=== PATIENT | female | born 1935 | race Caucasian/White ===

== ENCOUNTER 2017-04-17 11:35 | Inpatient (IN) | payer OTHER, MEDICARE ==
[2017-03-12 11:29] VITALS: BMI 28.0
--- NOTE | 2017-03-12 12:00 | PAT Medication Instructions ---
Service Date Mar 12, 2017. Current Home Medication List Amlodipine (Norvasc), 10 MG PO QPM Aspirin (Aspirin Ec), 81 MG PO QPM Atorvastatin (Lipitor), 20 MG PO QPM Calcium/Vitamin D (Os-Bandar 500 Plus D), 1 TAB PO NOON Cholecalciferol (Vitamin D3), 1 TAB PO QPM Fish Oil (White Salmon-3), 1 CAP PO BID Levothyroxine Sodium (Synthroid), 125 MCG PO QAM Metformin Hcl (Glucophage Er), 750 MG PO BID Multivitamins/Minerals (Mvi With Minerals), 1 TAB PO QPM Telmisartan (Micardis), 80 MG PO QAM Terazosin (Hytrin), 5 MG PO QPM [Metoprolol Succ], 125 MG PO QAM Medication Instructions For Your Scheduled Surgery - Hold the following medications 2 weeks prior to surgery: Fish Oil (White Salmon-3), 1 CAP PO BID - Hold the following medications 48 hours prior to surgery: Metformin Hcl (Glucophage Er), 750 MG PO BID - Hold the following medications the morning of surgery: Telmisartan (Micardis), 80 MG PO QAM Calcium/Vitamin D (Os-Bandar 500 Plus D), 1 TAB PO NOON - Take the following medications the morning of surgery with a sip of water OTHERWISE NOTHING TO EAT OR DRINK AFTER MIDNIGHT: [Metoprolol Succ], 125 MG PO QAM Levothyroxine Sodium (Synthroid), 125 MCG PO QAM - Take the following medications as scheduled the night before surgery: Multivitamins/Minerals (Mvi With Minerals), 1 TAB PO QPM Cholecalciferol (Vitamin D3), 1 TAB PO QPM Amlodipine (Norvasc), 10 MG PO QPM Aspirin (Aspirin Ec), 81 MG PO QPM Atorvastatin (Lipitor), 20 MG PO QPM Terazosin (Hytrin), 5 MG PO QPM If you have any questions please call us at [phone] or [phone] or [phone]
[2017-03-12 12:39] LABS: BASO % 0.9 %; BASO ABS # 0.09 K/uL (0-0.2); EOS % 4.4 %; EOS ABS # 0.42 K/uL (0-0.5); HEMATOCRIT 32.9 % (37-47); HEMOGLOBIN 10.4 g/dL (12.0-16.0); IG# 0.07 K/uL (0.00-0.02); LYMPH % 23.9 %; MEAN CELL VOLUME 84.1 fL (80-100); MEAN CORPUSCULAR HEMOGLOBIN 26.6 pg (25-34); MEAN CORPUSCULAR HGB CONC 31.6 g/dl (32-36); MEAN PLATELET VOLUME 9.3 fL (7.4-10.4); MONO % 9.6 %; MONO ABS # 0.93 K/uL (0.11-0.59); NEUT % 60.5 %; NEUT ABS # 5.83 K/uL (1.4-6.5); PLATELET COUNT 275 K/uL (130-400); RED CELL DISTRIBUTION WIDTH CV 15.8 % (11.5-14.5); RED CELL DISTRIBUTION WIDTH SD 48.3 fL (36.4-46.3); WHITE BLOOD COUNT 9.64 K/uL (4.8-10.8)
--- NOTE | 2017-03-12 12:45 | DIAGNOSTIC IMAGING REPORT ---
TWO VIEW CHEST CLINICAL HISTORY: Preoperative examination. FINDINGS: PA and lateral chest radiographs are obtained. No prior studies are available for comparison at the time of dictation. The heart is enlarged and there is atherosclerotic calcification of the thoracic aorta. The pulmonary vasculature is noncongested. The lungs and pleural spaces are clear. There is no pneumothorax. The skeletal structures are osteopenic. Degenerative change and mild hyperkyphosis are noted in the thoracic spine. IMPRESSION: Mild cardiac enlargement with no active disease in the chest. Electronically signed by: Carlitos Hurtado M.D. 03/12/2017 12:44 PM Dictated Date/Time: 03/12/2017 12:43 PM
[2017-03-12 12:53] LABS: INR 1.1 (0.9-1.1); PTT PATIENT 27.3 SECONDS (21.0-31.0)
[2017-03-12 14:00] LABS: CALCIUM 9.7 mg/dl (8.5-10.1); CREATININE 0.97 mg/dl (0.60-1.20); POTASSIUM 4.3 mmol/L (3.5-5.1)
--- NOTE | 2017-04-12 08:56 | HISTORY & PHYSICAL EXAMINATION ---
DATE OF ADMISSION: 04/17/2017 CHIEF COMPLAINT: Primary osteoarthritis of the right knee. HISTORY OF PRESENT ILLNESS: Brandee is a pleasant 81-year-old female who has been dealing with chronic right knee pain for several years. X-rays and clinical examination were diagnostic for primary osteoarthritis of the right knee. After failing extensive conservative treatment including multiple injections, she elected to proceed with a right total knee arthroplasty. PAST MEDICAL HISTORY: Significant for heart disease, non-insulin dependent diabetes, hypothyroidism, hyperlipidemia, hypertension. PAST SURGICAL HISTORY: Significant for left total knee arthroplasty done in 2009 in [facility] [place]. ALLERGIES: None. MEDICATIONS: Include metformin 750 mg daily, Synthroid 125 mcg daily, metoprolol 75 mg 1-1/2 tabs daily, Micardis 80 mg daily, amlodipine 10 mg daily, terazosin 5 mg daily, metformin 750 mg at night, atorvastatin 20 mg daily, and aspirin 81 mg daily. FAMILY HISTORY: Significant for heart disease. SOCIAL HISTORY: She is , has 4 children. She rarely drinks. She does little activity. REVIEW OF SYSTEMS: She complains of right knee pain. All other pertinent review of systems are negative. PHYSICAL EXAMINATION: GENERAL: She is awake, alert and orient x3. She is in no acute distress. She is very pleasant. HEAD, EYES, EARS, NOSE, AND THROAT: Pupils are equal, round and reactive to light. Extraocular motion intact. Oral mucosa is pink and moist. HEART: Regular rate per radial pulse. LUNGS: Ning symmetrically bilaterally with no audible breath sounds. ABDOMEN: Soft, nontender, nondistended. MUSCULOSKELETAL: On physical examination of the right knee, she has good range of motion from 5-110 degrees. She is unable to get out to full extension. She has no cruciate or collateral ligament instability. She has a very mild effusion on exam today. She has tenderness to palpation over the distal medial femoral condyle and over the medial joint line. X-rays of the right knee do show advanced osteoarthritis mostly involving the medial and patellofemoral compartments. There is joint space narrowing and osteophyte formation. There is a well placed Vanguard total knee arthroplasty on the left. IMPRESSION: Primary osteoarthritis of the right knee. PLAN: We will proceed with a Biomet Vanguard right total knee arthroplasty. Postoperatively, she will be started on aspirin for DVT prophylaxis and kept in the hospital for 2 midnights for postop medical management. Will likely discharge her to [facility] after her hospital stay.
[2017-04-17] VITALS (9 sets, daily range): BP systolic 98–135; BP diastolic 55–70; PULSE 61–83; TEMP 36.4–37.3; O2SAT 90–98; Ht 167.6 cm; Wt 80.6 kg
[~2017-04-17] VITALS: Ht 167.6 cm; Wt 80.6 kg
[~2017-04-17 11:35] MED LIST: ACETAMINOPHEN 500 MG TAB PO SCH; AMLO-114 PO; ASPI81TA28 PO; ATOR-22 PO; BUPIVACAINE 0.5 % 5 MG/1 ML PF 10ML VIAL ONE; CALC500C70 PO; CEFAZOLIN 2000MG IV PUSH 10 ML IV SCH; FAMOTIDINE 20 MG TAB PO SCH; GABAPENTIN 300 MG CAP PO SCH; LACTATED RINGER'S 1000ML 1,000 ML IV SCH; LACTATED RINGER'S 1000ML 500 ML IV SCH; LACTATED RINGER'S 1000ML IV SCH; LEVO125T72 PO; METF750T PO; METOPROLOL SUCC PO; MULT-513 PO; OMEG10007 PO; ROPIVACAINE 5MG/ML 30 ML 150 MG, BUPIVACAINE 0.5% MPF INJ 30 ML, EpINEphrine HCL INJ 0.... INFIL SCH; TELM80TA PO; TERA5CAP PO; VTMD1000 PO
--- NOTE | 2017-04-17 12:24 | History & Physical Bridge Note ---
H&P Re-Evaluation Bridge Note: I have examined the patient, reviewed the History & Physical and in the interval since the performance of the History & Physical I have noted the following changes of clinical significance: No changes noted
[2017-04-17] MEDS ORDERED: BUPIVACAINE 0.25% 30 ML VIAL ONE (12:32)
[2017-04-17] MEDS ORDERED: BACITRACIN 50000 UNIT VIAL ONE (12:42)
[2017-04-17] MEDS ORDERED: ORTHO JOINT ANESTHETIC ONE (12:42)
[2017-04-17] MEDS: TRANEXAMIC ACID INJ 1,000 MG in SYRINGE 0 ML IV SCH ×2 (13:15→17:06)
[2017-04-17] MEDS ORDERED: MIDAZOLAM HCL 1 MG/ML 2ML VIAL ONE (13:20)
[2017-04-17] MEDS ORDERED: FENTANYL CITRATE INJ 50 MCG/1 ML 2 ML VIAL ONE (13:20)
[2017-04-17] MEDS ORDERED: PROPOFOL IV EMULSION 10 MG/ML 20 ML VIAL IV ONE ×3 (14:04→15:14)
[2017-04-17] MEDS ORDERED: ONDANSETRON INJ 2 MG/ML 2 ML VIAL ONE (14:05)
--- NOTE | 2017-04-17 15:28 | [facility] Post Operative Brief Note ---
Immediate Operative Summary Operative Date Apr 17, 2017. Pre-Operative Diagnosis Right Knee Degenerative Joint Disease Post-Operative Diagnosis Same as preop Procedure(s) Performed Right Total Knee Arthroplasty Surgeon Dr. Cross Ge[employer] Plant Manager Surgeon(s) Alec Camarena PA-C Estimated Blood Loss 5ML Findings as above Specimens A. Right Knee Bone and Tissue Complication(s) None Disposition Recovery Room / PACU
[2017-04-17] MEDS ORDERED: DEXTROSE 50% 50 ML SYR IV PRN (15:30)
[2017-04-17] MEDS ORDERED: BISACODYL 10 MG SUPP PR PRN (15:30)
[2017-04-17] MEDS ORDERED: GLUCOSE 10 TABS/TUBE PO PRN (15:30)
[2017-04-17] MEDS ORDERED: SOD PHOSPHATE/SOD BIPHOSPHATE ENEMA 132 ML BTL PR PRN (15:30)
[2017-04-17] MEDS ORDERED: GLUCAGON FOR INJ 1 MG VIAL SQ PRN (15:30)
[2017-04-17] MEDS ORDERED: METOCLOPRAMIDE HCL INJ 5 MG/ML 2 ML VIAL IV PRN (15:30)
[2017-04-17] MEDS ORDERED: MAGNESIUM HYDROXIDE SUSP 30 ML UDC PO PRN (15:30)
[2017-04-17] MEDS ORDERED: GLUCOSE 40% GEL 15 GM TUBE PO PRN (15:30)
[2017-04-17] MEDS ORDERED: MoRPHine SULFATE 2 MG/ML CARP IV PRN (15:30)
[2017-04-17] MEDS ORDERED: ONDANSETRON INJ 2 MG/ML 2 ML VIAL IV PRN (15:30)
[2017-04-17] MEDS ORDERED: PHARMACY GLYCEMIC MGMT CONSULT PRN (15:57)
--- NOTE | 2017-04-17 16:09 | DIAGNOSTIC IMAGING REPORT ---
R KNEE 1 OR 2 VIEWS ROUTINE HISTORY: 81 years-old Female AP/LATERAL IN PACU RIGHT KNEE status post right knee arthroplasty. Degenerative joint disease. COMPARISON: Right knee radiographs 12/26/2016 TECHNIQUE: AP and lateral views of the right knee FINDINGS: Postoperative findings compatible with recent total knee joint arthroplasty and patella resurfacing. No evidence of periprosthetic fracture or malalignment. Surgical drain is in place along with anterior skin lencho. Expected postsurgical soft tissue swelling and deep tissue air without retained foreign body. Focal area of nonspecific increased sclerosis measuring up to 2.3 cm in length involves the proximal diaphyseal tibia. IMPRESSION: Status post right knee total joint arthroplasty and patellar resurfacing without complication identified. The above report was generated using voice recognition software. It may contain grammatical, syntax or spelling errors. Electronically signed by: Anthony Robles M.D. 04/17/2017 4:08 PM Dictated Date/Time: 04/17/2017 4:06 PM
--- NOTE | 2017-04-17 16:44 | Anesthesiology Progress Note ---
Anesthesia Post Op Note Date & Time Apr 17, 2017 at 16:44 Vital Signs Pain Intensity: 0 Vital Signs Past 12 Hours Date Time Temp Pulse Resp B/P (MAP) Pulse Ox O2 Delivery O2 Flow Rate FiO2 04/17/17 16:15 36.6 63 15 113/51 98 Nasal Cannula 2 04/17/17 16:05 65 22 112/46 97 Nasal Cannula 2 04/17/17 15:55 69 20 109/45 96 Nasal Cannula 2 04/17/17 15:49 36.2 76 16 97/43 95 Nasal Cannula 2 04/17/17 12:10 37.3 83 18 135/64 93 Room Air Notes Mental Status: alert / awake / arousable, participated in evaluation Pt Amnestic to Procedure: Yes Nausea / Vomiting: adequately controlled Pain: adequately controlled Airway Patency, RR, SpO2: stable & adequate BP & HR: stable & adequate Hydration State: stable & adequate Neuraxial Anesthesia: was administered, sensory block is resolving Anesthetic Complications: no major complications apparent
[2017-04-17] MEDS ORDERED: NURSING VERBAL MED ORDER ONE (17:15)
[2017-04-17] MEDS: INSULIN ASPART 100 UNITS/ML 3 ML PEN SC SCH ×3 (18:18→21:28)
[2017-04-17] MEDS: KETOROLAC TROMETHAMINE 15 MG/ML VIAL IV. SCH (18:19)
[2017-04-17] MEDS: ATORVASTATIN 20 MG TAB PO SCH (21:24)
[2017-04-17] MEDS: CHOLECALCIFEROL 1000 INTER.UNIT TAB PO SCH (21:24)
[2017-04-17] MEDS: AMLODIPINE BESYLATE 5 MG TAB PO SCH (21:24)
[2017-04-17] MEDS: SENNA 8.6 MG TAB PO SCH (21:25)
[2017-04-17] MEDS: ASPIRIN 325 MG ECTAB PO SCH (21:25)
[2017-04-17] MEDS: DOCUSATE SODIUM 100 MG CAP PO SCH (21:25)
[2017-04-17] MEDS: ACETAMINOPHEN IV 1,000 MG in EMPTY BAG 0 ML IV SCH (21:26)
[2017-04-17] MEDS: CEFAZOLIN IV 2,000 MG in SYRINGE 0 ML IV SCH (21:29)
[2017-04-18] VITALS (11 sets, daily range): BP systolic 85–127; BP diastolic 44–74; PULSE 55–65; TEMP 36.3–36.7; O2SAT 93–97
[2017-04-18] MEDS: KETOROLAC TROMETHAMINE 15 MG/ML VIAL IV. SCH ×5 (01:02→23:20)
[2017-04-18] MEDS: SODIUM CHLORIDE 0.9% 1000ML 1,000 ML IV SCH ×2 (01:02→10:31)
[2017-04-18] MEDS ORDERED: INSULIN ASPART 100 UNITS/ML 3 ML PEN SC SCH (02:00)
[2017-04-18] MEDS: OXYCODONE HCL IR 5 MG TAB (IMMEDIATE RELEASE) PO PRN ×3 (03:37→16:10)
[2017-04-18] MEDS: CEFAZOLIN IV 2,000 MG in SYRINGE 0 ML IV SCH (05:56)
[2017-04-18] MEDS: ACETAMINOPHEN IV 1,000 MG in EMPTY BAG 0 ML IV SCH ×3 (05:57→22:21)
[2017-04-18] MEDS: LEVOTHYROXINE 125 MCG TAB PO SCH (05:58)
[2017-04-18 06:31] LABS: HEMATOCRIT 30.3 % (37-47); HEMOGLOBIN 9.7 g/dL (12.0-16.0); MEAN CELL VOLUME 83.9 fL (80-100); MEAN CORPUSCULAR HEMOGLOBIN 26.9 pg (25-34); MEAN PLATELET VOLUME 9.2 fL (7.4-10.4); PLATELET COUNT 211 K/uL (130-400); RED CELL DISTRIBUTION WIDTH CV 15.5 % (11.5-14.5); RED CELL DISTRIBUTION WIDTH SD 48.2 fL (36.4-46.3); WHITE BLOOD COUNT 11.75 K/uL (4.8-10.8)
[2017-04-18 07:03] LABS: CALCIUM 8.6 mg/dl (8.5-10.1); CREATININE 0.83 mg/dl (0.60-1.20); POTASSIUM 3.9 mmol/L (3.5-5.1)
--- NOTE | 2017-04-18 07:16 | PROGRESS NOTE ---
DATE: 04/18/2017 CHIEF COMPLAINT: Status post right total knee arthroplasty postop day #1. PROGRESS: Brandee was seen and examined at bedside today. She said she really has no pain in the right knee. She has been up and using the bathroom. She had no acute events overnight and has no complaints. PHYSICAL EXAMINATION: RIGHT KNEE: The dressing is clean and dry and the drain is to suction. Her leg is out in full extension. She has active dorsiflexion and plantarflexion of her right ankle and sensation is intact. LABORATORY DATA: She has an H&H today of 9.7 and 30.3. Her PRP is still pending. Her vital signs are all stable on room air and she is voiding on her own. X-rays postoperatively of the right knee showed the prosthesis to be in anatomic alignment without any evidence of fracture, dislocation or loosening. IMPRESSION: Status post right total knee arthroplasty postop day #1. PLAN: We will continue aspirin for DVT prophylaxis. She can be up and ambulating today with physical therapy. Tomorrow morning, the nursing staff can change the dressing, pull the drain and if she is doing well, we will look for discharge to [facility] tomorrow.
--- NOTE | 2017-04-18 08:14 | Anesthesiology Progress Note ---
Anesthesia Post Op Note Date & Time Apr 18, 2017 at 08:14 Vital Signs Vital Signs Past 12 Hours Date Time Temp Pulse Resp B/P (MAP) Pulse Ox O2 Delivery O2 Flow Rate FiO2 04/18/17 07:45 95 Room Air 04/18/17 07:41 36.3 65 20 122/60 (80) 95 Room Air 04/18/17 07:05 Room Air 04/18/17 03:20 36.7 64 18 120/67 (84) 97 Room Air 04/17/17 23:20 Room Air 04/17/17 22:51 36.4 65 16 118/60 (79) 94 Room Air 04/17/17 21:16 61 113/56 (75) Notes Mental Status: alert / awake / arousable, participated in evaluation Pt Amnestic to Procedure: Yes Nausea / Vomiting: adequately controlled Pain: adequately controlled Airway Patency, RR, SpO2: stable & adequate BP & HR: stable & adequate Hydration State: stable & adequate Neuraxial Anesthesia: sensory block resolved Anesthetic Complications: no major complications apparent
[2017-04-18] MEDS: DOCUSATE SODIUM 100 MG CAP PO SCH ×2 (08:37→21:23)
[2017-04-18] MEDS: METOPROLOL SUCC 50MG EXT REL TAB PO SCH (08:38)
[2017-04-18] MEDS: ASPIRIN 325 MG ECTAB PO SCH ×2 (08:39→21:23)
[2017-04-18] MEDS: MULTIVITAMIN TAB PO SCH (08:39)
[2017-04-18] MEDS: TELMISARTAN 40 MG TAB PO SCH (08:39)
[2017-04-18] MEDS: CALCIUM 600MG + VIT D 400 IU TAB PO SCH (08:39)
[2017-04-18] MEDS: INSULIN ASPART 100 UNITS/ML 3 ML PEN SC SCH ×4 (08:48→20:36)
--- NOTE | 2017-04-18 11:02 | Pharmacy Progress Note ---
Glycemic Control Intl Consult Date of Service Apr 18, 2017. Scope Glycemic Pharmacist consulted by Dr Cross on 04/17/17 for glycemic control and to write orders per [facility] inpatient glycemic control protocol Objective Weight (Kilograms): 80.600 Accuchecks BSG (last 24hrs): Test 04/17/17 11:51 04/17/17 15:56 04/17/17 17:04 04/17/17 20:35 Bedside Glucose 140 mg/dl (70-90) 130 mg/dl (70-90) 134 mg/dl (70-90) 172 mg/dl (70-90) Test 04/18/17 02:00 04/18/17 05:54 04/18/17 07:58 Bedside Glucose 203 mg/dl (70-90) 120 mg/dl (70-90) Random Glucose 123 mg/dl (70-99) Laboratory Data (last 24hrs) Test 04/18/17 05:54 Anion Gap 6.0 mmol/L BUN/Creatinine Ratio 16.5 Blood Urea Nitrogen 14 mg/dl Creatinine 0.83 mg/dl Potassium Level 3.9 mmol/L Sodium Level 139 mmol/L White Blood Count 11.75 K/uL HbA1c Unavailable for review at this time Recent Pertinent Medications Outpatient Anti-diabetic Regimen: * Metformin ER 750mg BID - last dose taken on 04/14/17 The patient is currently receiving: * Correctional Insulin: Novolog Correction per scale ACHS Goal Range: Low 120 mg/dL - High 160 mg/dL Correction Factor: 35 mg/dL/unit * Prandial insulin: Per carb ratio of 1 unit per 12 grams CHO consumed * Oral Agents: Metformin on hold s/p R TKA Risk Factors for Insulin Resistance: * Recent Surgery: R TKA on 04/17/17 * Diet: T2DM Assessment & Plan ASSESSMENT: * 81 y/o POD #1 R TKA. Pharmacy consult to manage glycemic control while inpatient. She was only on Metformin as an outpatient with unknown glycemic control. No pre-op or post-op steroids noted. Given recent surgery, need tighter glycemic control, but do not want to be too aggressive due to her age. She was started on a slightly modified weight-base Novolog dose yesterday evening. * BG range 120-203 past 24 hours. Hyperglycemia 203 noted this AM ~0200 due to patient snacking. She needs a tighter carb ratio to prevent postprandial BG elevation. * Possible discharge to [facility] for rehab on 04/19/17 PLAN FOR INPATIENT GLYCEMIC CONTROL: * Continuing correction factor 35 mg/dl/unit * Changing carb ratio to 1 unit per 10 grams CHO consumed * Continuing goal range Low 120 mg/dL - High 160 mg/dL * HbA1c ordered with AM labs 04/19/17 to assess outpatient glycemic control * Pharmacy does not stock Metformin ER 750mg tablets, therefore unable to restart as an inpatient. Depending on HbA1c, likely reasonable to restart Metformin ER 750mg BID upon discharge. * Please note that the plan above was derived based on current level of insulin resistance and hospital stress. These recommendations are appropriate for inpatient admission only. Plan of care upon discharge will need to be reassessed to avoid potential outpatient hypo/hyperglycemia. Thank you.
[2017-04-18] MEDS ORDERED: NURSING VERBAL MED ORDER ONE ×4 (14:00→22:15)
--- NOTE | 2017-04-18 17:15 | Discharge Instructions ---
Discharge Instructions Date of Service Apr 18, 2017. Admission Reason for Admission: Right Knee Osteoarthritis Discharge Discharge Diagnosis / Problem: Right Total Knee Discharge Goals Goal(s): Decrease discomfort, Improve function Activity Recommendations Activity Limitations: as noted below . Instructions / Follow-Up Instructions / Follow-Up Activity and Therapy Recommendations: * If you are using [facility] then Physical Therapy will be provided until they feel you are ready to start Outpatient Physical Therapy. If you are not using a Home Health agency then Outpatient Physical Therapy should start about 3-5 days from your day of surgery. Therapy will last about 6-10 weeks * It is important not to put a pillow under your knee when you are relaxing or sleeping. It is just as important to make sure you are getting your knee perfectly straight as it is to regain your knee bend. * You were shown a series of exercises in the hospital. Do these exercises three times each day including the exercises you were shown in physical therapy. * Get up and walk several times each day. For the first four weeks, try not to stand or walk for more than one hour at a time. If you do stand or walk for more than one hour, you will not hurt anything, but your leg will likely swell. * As you feel comfortable, you may change from the walker or crutches to a cane and then to independent walking. Medications: * Narcotic You will likely be sent home from the hospital with a prescription for the narcotic pain medication that worked best throughout your stay. * Aspirin Most patients will be required to take Aspirin 325mg twice a day for 6 weeks after surgery. This is obtained [id number] and a prescription is not necessary. * Other medications may be prescribed for specific circumstances. If you have any questions, please call the office at . * Resume previous home medications unless otherwise instructed TEDs/Elastic Stockings: The white elastic stockings help limit swelling and prevent blood clots from forming in your legs.~ The more you wear them, the more they work. Wear them for six weeks. Showering: You may shower 5 days from the day of surgery. Let the soapy shower water run over the lencho. Do not scrub or soak the incision. Things To Watch For: * Drainage from the incision site that occurs more than one week after your surgery. * Increased redness at the incision site. * Fever above 102 degrees Fahrenheit. * Unusual chest pain or shortness of breath. * Call [facility] at with any of the above problems Follow-Up Visit: Follow-up with Dr. Cross 2 weeks after your day of surgery. An appointment was probably scheduled when you signed-up for surgery in the office. If you have any questions call Office Instructions: More detailed instructions as well as Frequently Asked Questions were provided in a folder by our office when you signed-up for surgery. Please review these instructions when you get home. If you have any further questions or concerns, please feel free to call the office at [phone] Current Hospital Diet Patient's current hospital diet: Diabetes Type 2 Diet Discharge Diet Recommended Diet: Diabetes Type 2 Diet Procedures Procedures Performed: Right Total Knee Arthroplasty Pending Studies Studies pending at discharge: no Medical Emergencies . Who to Call and When: Medical Emergencies: If at any time you feel your situation is an emergency, please call 911 immediately. . Non-Emergent Contact Non-Emergency issues call your: Surgeon Call Non-Emergent contact if: wound has increased drainage, wound has increased redness (Aspirin 325 twice a day for 6 weeks) . "Provider Documentation" section prepared by Carlos Cross. . VTE Core Measure Inpt VTE Proph given/why not?: Other Anticoagulation (Aspirin 325 twice a day for 6 weeks)
[2017-04-18] MEDS: AMLODIPINE BESYLATE 5 MG TAB PO SCH (21:00)
[2017-04-18] MEDS ORDERED: SODIUM CHLORIDE 0.9% 500ML 500 ML IV ONE (21:15)
[2017-04-18] MEDS: SENNA 8.6 MG TAB PO SCH (21:23)
--- NOTE | 2017-04-18 22:08 | Medical Consult ---
Consultation Note Date of Service Apr 18, 2017. (Ryan Sow MD) Consultation Note S: Patient is an 81 year old female with a past medical history of HTN, HLD, and Diabetes post-op day 1 s/p Total Right Knee Replacement. The patient tolerated the procedure well and has been experiencing no pain since the surgery. We were consulted due to hypotension during orthostatic vitals. The patient has been having SBPs in the 80s when sitting and 120s when standing. The patient has been asymptomatic with these hypotensive reading and denies any lightheadedness, shortness of breath, dizziness, vision changes, headaches, or palpitations. The patient is currently on Norvasc, Micardis, Hytrin, and Metoprolol that can all lower her blood pressure. She states that her pressures are normally low in the mornings after her dose of Hytrin but otherwise are fairly stable. The patient was receiving fluids until 1527 at 100 mls/hr. O: GENERAL: Awake, alert, well-appearing, in no distress HENT: Normocephalic, atraumatic. EYES: Normal conjunctiva. Sclera non-icteric. NECK: Supple. Trachea midline RESPIRATORY: Clear to auscultation. CARDIAC: Regular rate, normal rhythm. Extremities warm and well perfused. Pulses equal. ABDOMEN: Soft, non-distended. No tenderness to palpation. RECTAL: Deferred. MUSCULOSKELETAL: Chest examination reveals no tenderness. The back is symmetrical on inspection without obvious abnormality. LOWER EXTREMITIES: Calves are equal size bilaterally and non-tender. Dressing over right knee C/D/I with no complaints of tenderness. NEURO: Normal sensorium. SKIN: No rash or jaundice noted. A/P: Patient is an 81 year old female with a past medical history of HTN, HLD, and Diabetes post-op day 1 s/p Total Right Knee Replacement that is hypotensive on sitting 1) Acute Hypotension - Asymptomatic and other vitals stable, most likely secondary to low volume status - 500cc NS Bolus - Hold evening Norvasc and Micardis - If pressure remains hypotensive will restart maintenance fluids 2) Total Right Knee Replacement - Pain well controlled at this time - Hold Oxycodone and attempt to control pain with Toradol while hypotensive 3) Diabetes - ISS - Holding home metformin - Sugars well controlled 4) Hyperlipidemia - Synthroid 125mcg PO Daily 5) Atrial Tachycardia - Toprol XL 125mg qAM 6) Code Status - Full Resuscitation (Ryan Sow MD) Resident Physician Supervision Note: Pt evaluated independently. I discussed the case with the resident and agree with the findings and plan as documented in the note. Any exceptions or clarifications are listed here: 81 y/o F Hx HTN, HPL, DM - post elective R TKR - Had not had specific complaints , however, a low BP reading was reported by nursing The medical service was summoned to consult therefore. OE AAO x 3 - no distress S1,2 R CTAB NT, ND No CCE P: Hypotension is liley the result of a post-op fluid deficit The pt responded to a 500cc fluid bolus Her evening BP meds were held The med service will follow pending DC Documented By: Kofi Salgado (Kofi Salgado M.D.)
[2017-04-18] MEDS: CHOLECALCIFEROL 1000 INTER.UNIT TAB PO SCH (22:21)
[2017-04-18] MEDS: ATORVASTATIN 20 MG TAB PO SCH (22:21)
[2017-04-19] MEDS: LEVOTHYROXINE 125 MCG TAB PO SCH (06:09)
[2017-04-19] MEDS: ACETAMINOPHEN IV 1,000 MG in EMPTY BAG 0 ML IV SCH (06:11)
[2017-04-19] MEDS: KETOROLAC TROMETHAMINE 15 MG/ML VIAL IV. SCH ×2 (06:14→12:12)
[2017-04-19 06:36] LABS: HEMOGLOBIN A1C 5.9 % (4.5-5.6)
[2017-04-19 06:38] VITALS: BP 126/69; PULSE 63; TEMP 36.7; O2SAT 95
[2017-04-19] MEDS ORDERED: RXC5 PO (07:23)
[2017-04-19] MEDS ORDERED: ASPEC325 PO (07:23)
[2017-04-19] MEDS: TELMISARTAN 40 MG TAB PO SCH (07:33)
[2017-04-19] MEDS: CALCIUM 600MG + VIT D 400 IU TAB PO SCH (07:34)
[2017-04-19] MEDS: METOPROLOL SUCC 50MG EXT REL TAB PO SCH (07:35)
[2017-04-19] MEDS: MULTIVITAMIN TAB PO SCH (07:35)
[2017-04-19] MEDS: INSULIN ASPART 100 UNITS/ML 3 ML PEN SC SCH ×2 (07:37→12:37)
--- NOTE | 2017-04-19 07:45 | PROGRESS NOTE ---
DATE: 04/19/2017 CHIEF COMPLAINT: Status post right total knee arthroplasty, postop day #2. PROGRESS: Brandee was seen and examined at bedside today. Overall, she is doing very well. She is sitting up in her chair. She has been ambulating well with physical therapy. She did have a hypotensive episode yesterday and medicine was consulted. They diagnosed her with likely postoperative fluid deficit and gave her 500 mL of fluid bolus. They also held her evening blood pressure medications. PHYSICAL EXAMINATION: RIGHT KNEE: The dressing has been changed. The drain has been pulled. She was seen with her knee flexed at 90 degrees. She has active dorsiflexion and plantarflexion of her right ankle and sensation is intact throughout. Vital signs are all now stable on room air. Her blood pressure is 126/69. She is voiding on her own. IMPRESSION: Status post right total knee arthroplasty, postop day #2. PLAN: At this point, she is doing very well. Her blood pressures returned to normal. She feels good. She has been ambulating well with physical therapy. She can be discharged to [facility] later today.
--- NOTE | 2017-04-19 07:45 | DISCHARGE SUMMARY ---
DATE OF DISCHARGE: 04/19/2017 DISCHARGE DIAGNOSIS: Primary osteoarthritis of the right knee. PROCEDURE: Right total knee arthroplasty on 04/17/[address] Carlos Cross. DISCHARGE INSTRUCTIONS: 1. Aspirin 325 mg twice a day for DVT prophylaxis. 2. JON hose stockings for 6 weeks. 3. Oxycodone 5-10 mg every 4 hours as needed for pain. 4. Norvasc 10 mg daily. 5. Lipitor 20 mg daily. 6. Synthroid 125 mg daily. 7. Glucophage 750 mg twice a day. 8. Micardis 80 mg daily. 9. Hytrin 5 mg daily. 10. Continue all other vitamins and supplementations. 11. Follow up with Dr. Cross in 2 weeks. 12. Call the office of Dr. Cross with any questions or concerns. HOSPITAL COURSE: Brandee is a pleasant 81-year-old female who presented to my office with chronic right knee pain. X-rays and clinical examination were diagnostic for primary osteoarthritis of the right knee. After failing conservative treatment, she elected to undergo a right total knee arthroplasty. On 04/17/2017, she arrived at [facility] for the above procedure. She underwent a right total knee arthroplasty without complication. She had a spinal anesthetic and a right adductor nerve block. Postoperatively, she was discharged to general orthopedic floor. Her hospital course was uneventful. On postop day #1, her H&H was stable at 9.7 and 30.3. She was up and ambulating well with physical therapy. Her pain was well controlled. Later in the evening she became a little bit hypotensive. Medicine was consulted. They reviewed her, they held her evening blood pressure medications. I gave her 500 mL fluid bolus. That seemed to resolve her symptoms. On postop day #2, she was doing well. Her blood pressure returned to normal. The dressing was changed, the drain was pulled and she continued to work well with physical therapy. She was subsequently discharged to [facility] with the above instructions.
--- NOTE | 2017-04-19 07:49 | Pharmacy Progress Note ---
Pharmacy Glycemic Short Note 2 Date of Service Apr 19, 2017. OUTPATIENT ANTIDIABETIC REGIMEN: * Metformin ER 750 mg BID ASSESSMENT: * Patient is POD #2 s/p R TKA * She received 18 units of insulin yesterday with BSGs ranging from 91-134 mg/ dL in past 24 hours * BSGs remain stable * No changes to causes of insulin resistance and patient will be discharged today * A1c = 5.9% (04/19/17) PLAN FOR INPATIENT GLYCEMIC CONTROL: * Hold outpatient oral diabetes medications - unable to resume since specific product is non-formulary * Continue Bolus insulin * NovoLog per scale ACHS or Q6hrs while NPO * Goal Range: Low 120 mg/dL - High 160 mg/dL * Correction Factor: 35 mg/dL/unit * Nutritional / Prandial insulin per carb ratio of 1 unit per 10 grams CHO consumed PLAN FOR DISCHARGE: * A1c indicates excellent outpatient control * Continue metformin on discharge
[2017-04-19] MEDS: ASPIRIN 325 MG ECTAB PO SCH (08:01)
[2017-04-19] MEDS: DOCUSATE SODIUM 100 MG CAP PO SCH (08:01)
[2017-04-19 10:07] VITALS: BP 126/69; PULSE 63; TEMP 36.7; O2SAT 95
[2017-04-19] MEDS: OXYCODONE HCL IR 5 MG TAB (IMMEDIATE RELEASE) PO PRN (13:43)
--- NOTE | 2017-05-01 13:40 | OPERATIVE REPORT ---
DATE OF OPERATION: 04/17/2017 PREOPERATIVE DIAGNOSIS: Primary osteoarthritis of the right knee. POSTOPERATIVE DIAGNOSIS: Same. PROCEDURE: Right total knee arthroplasty. SURGEON: Dr. Carlos Cross. PILE DRIVER OPERATOR: Alec Camarena PA-C, whose assistance was necessary for positioning of the leg and helping with retraction and closure. ANESTHESIA: Spinal with a right adductor nerve block. COMPLICATIONS: None. CONDITION: Stable to PACU. IMPLANTS USED: I used a [employer] Vanguard total knee arthroplasty system with a size 65-mm femur, size 71 tibia, size 28 patella and size 10 polyethylene insert. All components were cemented with Palacos-G cement. INDICATIONS: Brandee is a pleasant 81-year-old female who presented to my office with complaints of chronic right knee pain. X-rays and clinical examination were diagnostic for primary osteoarthritis of the right knee. After failing conservative treatment, she elected to undergo a right total knee arthroplasty. DESCRIPTION OF PROCEDURE: On 04/17/2017, she arrived at [facility] for the above procedure. She was seen in the preoperative holding area and the operative extremity was identified and signed. She was given a preoperative antibiotic, a spinal anesthetic and a right adductor nerve block. She was taken back to the operating room, laid on the table in supine position and given basic sedation. The right knee was then prepped and draped in sterile fashion. Time-out was done and the patient's operative extremity was properly identified. A longitudinal incision was made directly over the patella. Dissection was taken down through the fascia and a medial parapatellar arthrotomy was used. The medial retinaculum was released and the fat pad was left intact and the knee was flexed. ACL, PCL and meniscus were removed. A drill was then sent down the center of the femoral canal, followed by an intramedullary na. Off that na, a distal femoral cutting block was placed. A 12 mm was resected off the distal femur at 5 degrees of valgus. A posterior referencing guide was then used to measure the distal femur and it measured to be a size 65. Two drill holes were placed in 3 degrees of external rotation. A 4-in-1 cutting block was impacted into place. Anterior, posterior and chamfer cuts were then made. A box cutting guide was then impacted into place and the box was resected for the posterior stabilizing component. The proximal tibia was exposed. A drill was sent down the center of the tibial canal followed by an intramedullary na. Off that na, a proximal tibial resection guide was placed. A 2 mm was resected off the low medial side. The tibia then measured to be a size 71. It was set in the appropriate rotation, drilled and then punched. The posterior aspect of the knee was opened up and any remnants of soft tissue or bony fragments were removed. Trial components were then placed. The knee was brought through a full range of motion and felt to be stable. The patella was then everted and 8 mm was resected off the posterior aspect of the patella. A 28-mm patella seemed to be the best fit and 3 peg hole drills were made. Trial components were then removed. The surrounding soft tissues were injected with 100 mL of an orthopedic pain control cocktail. The femoral, tibial, and patellar components were then cemented in place with Palacos-G cement. Once the cement had hardened, several polyethylene inserts were trialed and a size 10 seemed to be the best fit. The final size 10 implant was then snapped into place and the anterior bar was locked. The wound was then irrigated with 3 liters of normal saline solution with bacitracin. Two drains were placed. The extensor mechanism was closed with #2 FiberWire suture in the superior medial aspect and #1 Vicryl both proximally and distally. Skin was closed with 2-0 Vicryl, 3-0 V-Loc suture and lencho. She was then placed in a soft compressive dressing and taken to the postanesthesia care unit in stable condition. She tolerated the procedure well. I attest to the content of the Intraoperative Record and any orders documented therein. Any exception s are noted below.
== END 2017-04-19 14:20 | DRG 470 ==
LOC: C.ACU 11:35 → C.3E 12:16 → ENRESERV 16:10
PROVIDERS: ADMIT Orthopaedic Surgery; ATTEND Orthopaedic Surgery
PROC: 0SRC0J9 Replacement of Right Knee Joint with Synthetic Substitute, Cemented, Open Approach (ICD-10-PCS; principal; 2017-04-17 14:00)
DX: M17.11 Unilateral primary osteoarthritis, right knee (principal); I95.81 Postprocedural hypotension; E11.9 Type 2 diabetes mellitus without complications; E03.9 Hypothyroidism, unspecified; E78.5 Hyperlipidemia, unspecified; I11.9 Hypertensive heart disease without heart failure; Z96.652 Presence of left artificial knee joint; Z79.82 Long term (current) use of aspirin; Z79.84 Long term (current) use of oral hypoglycemic drugs; Z79.899 Other long term (current) drug therapy; Z82.49 Family history of ischemic heart disease and other diseases of the circulatory system

== ENCOUNTER 2019-01-16 10:40 | Inpatient (IN) ==
--- NOTE | 2019-01-06 20:14 | PAT Medication Instructions ---
Medication Instructions Date of Service January 06, 2019 Home Medications amlodipine 10 mg tablet 10 mg PO QPM aspirin 81 mg tablet 81 mg PO QPM atorvastatin 20 mg tablet 20 mg PO HS cholecalciferol (vitamin D3) 2,000 unit tablet 2,000 units PO QAM diphenhydramine 25 mg tablet 25 mg PO HS hydrochlorothiazide 25 mg tablet 25 mg PO QAM levothyroxine 125 mcg tablet 125 mcg PO QAM losartan 100 mg tablet 100 mg PO QAM metformin ER 750 mg tablet,extended release 24 hr 750 mg PO BID metoprolol succinate ER 50 mg tablet,extended release 24 hr 50 mg PO BID multivitamin tablet 1 tab PO QPM ASK your prescriber and surgeon aspirin 81 mg tablet 81 mg PO QPM DO NOT take the morning of surgery cholecalciferol (vitamin D3) 2,000 unit tablet 2,000 units PO QAM hydrochlorothiazide 25 mg tablet 25 mg PO QAM losartan 100 mg tablet 100 mg PO QAM metformin ER 750 mg tablet,extended release 24 hr 750 mg PO BID Take morning of surgery With a small sip of water, OTHERWISE NOTHING TO EAT OR DRINK AFTER MIDNIGHT: levothyroxine 125 mcg tablet 125 mcg PO QAM metoprolol succinate ER 50 mg tablet,extended release 24 hr 50 mg PO BID Take evening before surgery amlodipine 10 mg tablet 10 mg PO QPM\ atorvastatin 20 mg tablet 20 mg PO HS diphenhydramine 25 mg tablet 25 mg PO HS metformin ER 750 mg tablet,extended release 24 hr 750 mg PO BID metoprolol succinate ER 50 mg tablet,extended release 24 hr 50 mg PO BID multivitamin tablet 1 tab PO QPM Other Notes If you have any questions please call us at [phone] or [phone] or [phone] or [phone]
--- NOTE | 2019-01-07 13:45 | Anesthesiology Consultation ---
Date of Service January 07, 2019 Assessment & Plan (1) Encounter for pre-operative examination: - Cardiology: 01/07/19: "stable from a cardiovascular standpoint. She demonstrates excellent control of her blood pressure. The patient demonstrates adequate functional status without cardiac symptoms. She is considered acceptable cardiac risk for upcoming lumbar surgery with Dr. Baeza on January 16. No further cardiac testing is necessary." - Check BSG AM DOS - ASA okay to continue perioperatively per surgeon Chart Review Chart Review: Acceptable Risk for Surgery and Patient seen in Pre Admission Testing Consults Requested none Teaching & Discussion Pre-Anesthesia Teaching/Discussion Notes: Instructed NPO after midnight before surgery,except medications with 15 cc of water. Medication instructions provided according to the PAT guidelines. History Surgery Operation Date: 01/16/19 08:15 Proposed Procedures p L3-L4, L4-L5 Laminectomy - Baltazar Baeza, Height/Weight Height: 5 ft 6 in Weight: 78.7 kg Allergies Allergy/AdvReac Type Severity Reaction Status Date / Time No Known Allergies Allergy Unverified 01/07/19 10:09 Medications Home Medications Medication Instructions Recorded Confirmed Last Taken amlodipine 10 mg tablet 10 mg PO QPM #90 tab 01/01/19 01/07/19 Unknown aspirin 81 mg tablet 81 mg PO QPM tab 01/01/19 01/02/19 Unknown atorvastatin 20 mg tablet 20 mg PO HS #90 tab 01/01/19 01/02/19 Unknown cholecalciferol (vitamin D3) 2,000 2,000 units PO QAM tab 01/01/19 01/02/19 Unknown unit tablet diphenhydramine 25 mg tablet 25 mg PO HS tab 01/01/19 01/02/19 Unknown hydrochlorothiazide 25 mg tablet 25 mg PO QAM tab 01/01/19 01/02/19 Unknown levothyroxine 125 mcg tablet 125 mcg PO QAM #90 tab 01/01/19 01/02/19 Unknown losartan 100 mg tablet 100 mg PO QAM #90 tab 01/01/19 01/02/19 Unknown metformin ER 750 mg 750 mg PO BID tab 01/01/19 01/02/19 Unknown tablet,extended release 24 hr metoprolol succinate ER 50 mg 50 mg PO BID #180 tab 01/01/19 01/02/19 Unknown tablet,extended release 24 hr multivitamin tablet 1 tab PO QPM 01/01/19 01/02/19 Unknown Past Medical History Medical History Atrial tachycardia follows w/cardiology Chronic back pain Diabetes mellitus, type 2 NIDDM Hearing deficit B/L STEV[place] Hyperlipidemia Hypertension Hypothyroidism Osteoarthritis Exercise / Class Metabolic Activity III < 4 Walking/Shop/Light housework Past Surgical History Surgical History History of appendectomy History of cataract surgery History of colonoscopy History of femoral hernia repaired History of knee replacement procedure of left knee History of knee replacement procedure of right knee History of ovarian cystectomy x 2 History of tubal ligation Past Anesthesia History No Hx of Anesthesia Complications and No Family Hx of Anesthesia Complications History of PONV No Hx of PONV and No Hx of Motion Sickness Social History Smoking Status: Former smoker Do You Dip or Chew Tobacco: No Smoking End Date: Quit at age 40 Hx Alcohol Use: No Hx Substance Use: No substance use type: does not use Review of Systems Reflux controlled. Patient denies chest pain, shortness of breath, cough, wheezing, palpitations. Physical Exam Vital Signs VITALS BP 107/67 P 76 TEMP 98.0 SP02 97%RA RESP 18 PHYSICAL Full neck and c-spine range of motion. Full TMJ range of motion. TMD 3 finger breaths Mallampati Score 1 Dentition: intact, upper front crowns Lungs: clear throughout to auscultation Cardiac: regular rate and rhythm, no murmurs noted Spine: normal Carotid arteries: negative bruit Extremities: no edema Testing Laboratory Results 01/07/19 13:35 01/07/19 13:35 PT 10.1 Seconds (9.0-12.0) 01/07/19 13:35 INR 1.0 (0.9-1.1) 01/07/19 13:35 APTT 21.8 Seconds (21.0-31.0) 01/07/19 13:35 Electrocardiogram Date: 06/20/18 SR with PSVC's at 65bpm. Otherwise "normal" ECG. Chest X-Ray Date: 06/20/18 The heart is mildly enlarged and there is atherosclerotic calcification of the thoracic aorta. The pulmonary vasculature is non-congested. Chronic interstitial thickening is similar to previous. There is mild bibasilar atelectasis. No airspace consolidation or pleural effusion is identified. There is no pneumothorax. The skeletal structures are osteopenic. The bony thorax appears intact. Mild cardiac enlargement with no active disease in the chest.
[2019-01-07 16:02] LABS: Basophils # (auto) 0.05 K/uL (0-0.2); Basophils % (auto) 0.5 %; Eosinophils # (auto) 0.26 K/uL (0-0.5); Eosinophils % (auto) 2.7 %; Hemoglobin 12.5 g/dL (12.0-16.0); Immature Granulocytes # (auto) 0.06 K/uL (0.00-0.02); Immature Granulocytes % (auto) 0.6 %; Lymphocytes # (auto) 2.79 K/uL (1.2-3.4); Lymphocytes % (auto) 28.9 %; Mean Corpuscular Hgb Conc 32.9 g/dL (32-36); Mean Corpuscular Volume 91.3 fL (80-100); Mean Platelet Volume 9.6 fL (7.4-10.4); Monocytes # (auto) 0.85 K/uL (0.11-0.59); Monocytes % (auto) 8.8 %; Neutrophils # (auto) 5.64 K/uL (1.4-6.5); Neutrophils % (auto) 58.5 %; Platelet Count 240 K/uL (130-400); RDW Coefficient of Variation 14.4 % (11.5-14.5); RDW Standard Deviation 47.5 fL (36.4-46.3); Red Blood Count 4.16 M/uL (4.2-5.4); White Blood Count 9.65 K/uL (4.8-10.8)
[2019-01-07 16:07] LABS: BUN Creatinine Ratio 22.4 (10-20); Calcium 9.4 mg/dl (8.5-10.1); Creatinine Clr Calc Pharmacy 37.9 ml/min; Est GFR (African American) 50.2; Est GFR (Non-African American) 43.4; Potassium 3.5 mmol/L (3.5-5.1)
[2019-01-07 16:18] LABS: Partial Thromboplastin Ratio 0.8; Partial Thromboplastin Time 21.8 Seconds (21.0-31.0); Prothrombin Time 10.1 Seconds (9.0-12.0)
--- NOTE | 2019-01-15 11:38 | History and Physical Report ---
DATE OF ADMISSION: 01/15/2019 CHIEF COMPLAINT: Lower extremity difficulty, neurogenic claudication, inability to ambulate. HISTORY OF PRESENT ILLNESS: Brandee is pleasant. She is 83 years of age. She has severe stenosis of the spine and walking intolerance. She is here for elective surgery. She has failed conservative measures. PAST MEDICAL HISTORY: Heart disease, diabetes, osteoporosis, hypertension. PAST SURGICAL HISTORY: Total knee replacement. ALLERGIES: Negative. FAMILY HISTORY: Heart disease. SOCIAL HISTORY: . No alcohol, no tobacco. REVIEW OF SYSTEMS: Twelve system review negative fevers, sweats, chills. Ear, nose and throat negative. Denies chest pain, palpitations. Denies shortness of breath, cough. Denies nausea, vomiting, urgency, frequency. She has joint pain, stiffness and back pain. MEDICATIONS: Metformin, Synthroid, metoprolol, Micardis, Lipitor, baby aspirin, fish oil, vitamin D. OBJECTIVE: GENERAL: She is alert, oriented. She is 5 feet 6 inches, 182 pounds. She is in distress. She cannot walk. VITAL SIGNS: Blood pressure 130/80, pulse 80, respirations 16. HEENT: Pupils react to light and accommodation. Ear, nose and throat clear. CARDIAC: Normal S1, S2, no S3. LUNGS: Clear to auscultation. No rales, rhonchi, wheezing. ABDOMEN: Soft and nontender. EXTREMITIES: Intact, but she has mild edema, mild varicosities and significant weakness with dorsiflexion and plantarflexion, gait abnormality. IMAGES: Reviewed. Severe stenosis lumbar spine L3-L5. PLAN: Includes a laminectomy L3-L5 lumbar spine.
[~2019-01-16 10:40] MED LIST changes: -ACETAMINOPHEN 500 MG TAB PO SCH; -AMLO-114 PO; -ASPI81TA28 PO; -ATOR-22 PO; -BUPIVACAINE 0.5 % 5 MG/1 ML PF 10ML VIAL ONE; -CALC500C70 PO; +CEFAZOLIN 2000MG 2,000 MG/15 ML SYR IV SCH; -CEFAZOLIN 2000MG IV PUSH 10 ML IV SCH; -FAMOTIDINE 20 MG TAB PO SCH; -GABAPENTIN 300 MG CAP PO SCH; -LACTATED RINGER'S 1000ML 1,000 ML IV SCH; -LACTATED RINGER'S 1000ML 500 ML IV SCH; -LACTATED RINGER'S 1000ML IV SCH; -LEVO125T72 PO; +LR 15ML/HR IV SCH; -METF750T PO; -METOPROLOL SUCC PO; -MULT-513 PO; -OMEG10007 PO; -ROPIVACAINE 5MG/ML 30 ML 150 MG, BUPIVACAINE 0.5% MPF INJ 30 ML, EpINEphrine HCL INJ 0.... INFIL SCH; +SODIUM CHLORIDE 0.9% 1,000 ML IV SCH; -TELM80TA PO; -TERA5CAP PO; -VTMD1000 PO
[2019-01-16] MEDS ORDERED: MIDAZOLAM HCL 1 MG/ML 2ML VIAL ONE (11:35)
[2019-01-16] MEDS ORDERED: PROPOFOL IV EMULSION 10 MG/ML 20 ML VIAL IV ONE (11:35)
[2019-01-16] MEDS ORDERED: ONDANSETRON INJ 2 MG/ML 2 ML VIAL ONE ×2 (11:35→13:54)
[2019-01-16] MEDS ORDERED: ROCURONIUM BROMIDE 10 MG/ML 5 ML VIAL ONE (11:35)
[2019-01-16] MEDS ORDERED: DEXAMETHASONE SOD INJ 4 MG/ML VIAL ONE (11:35)
[2019-01-16] MEDS ORDERED: fentaNYL citrate 100 MCG/2 ML VIAL ONE ×2 (11:35→13:25)
[2019-01-16] MEDS ORDERED: LIDOCAINE HCL 2% 2 ML VIAL/AMP(20MG/ML) INFIL ONE (11:35)
[2019-01-16] MEDS ORDERED: BACITRACIN INJ 50,000 UNIT VIAL ONE (12:35)
[2019-01-16] MEDS ORDERED: GELATIN SPONGE SZ 100 ONE (12:35)
[2019-01-16] MEDS ORDERED: THROMBIN FOR SOLN 20000 UNIT KIT ONE (12:35)
[2019-01-16] MEDS ORDERED: VANCOMYCIN HCL 1000MG/20ML VIAL ONE (12:35)
[2019-01-16] MEDS ORDERED: BUPIVACAINE/EPINEPHRINE 0.5% MPF 1:200,000 30 ML VIAL ONE (12:35)
[2019-01-16] MEDS ORDERED: ATROPINE SULFATE 0.1 MG/ML 10ML SYR IV PRN (12:38)
[2019-01-16] MEDS ORDERED: HYDROmorphone INJ 1 MG/ML SYRINGE IV PRN ×2 (12:38→16:45)
[2019-01-16] MEDS ORDERED: fentaNYL citrate 100 MCG/2 ML VIAL IV PRN (12:38)
[2019-01-16] MEDS ORDERED: ePHEDrine sulfate 50 MG/ML AMP IV PRN (12:38)
[2019-01-16] MEDS ORDERED: ONDANSETRON INJ 2 MG/ML 2 ML VIAL IV PRN ×2 (12:38→16:15)
--- NOTE | 2019-01-16 12:41 | History & Physical Bridge Note ---
Date of Service January 16, 2019 History & Physical Bridge Note I have examined the patient, reviewed the History & Physical and in the interval since the performance of the History & Physical I have noted the following changes of clinical significance: no changes noted
[2019-01-16] MEDS ORDERED: GLYCOPYRROLATE 0.2 MG/ML VIAL ONE (13:56)
[2019-01-16] MEDS ORDERED: NEOSTIGMINE METHYLSULFATE 5 MG/5 ML SYR ONE (13:56)
--- NOTE | 2019-01-16 14:59 | Post Operative Brief Note ---
PG Immediate Post Op with CF Date of Surgery January 16, 2019 Pre & Post Diagnosis Operation Date: 01/16/19 12:20 Pre-Op Diagnosis: LUMBAR SPINAL STENOSIS Post-Op Diagnosis: LUMBAR SPINAL STENOSIS Procedure Operation Date: 01/16/19 12:20 Actual Procedures p L3-L4, L4-L5 Laminectomy,L4-5 Spinal Fusion(Not Applicable) - Baltazar Baeza DO Surgeon Baltazar Baeza DO Director Service jenna Estimated Blood Loss 150 Findings Consistent with Post-Op Diagnosis Drains Jose Catheter Overlapping Procedure I was immediately available: during the entire case.
--- NOTE | 2019-01-16 15:08 | Fluoroscopy Report ---
FL spine 1V any level CLINICAL HISTORY: L3-L4, L4-L5 laminectomy COMPARISON STUDY: Lumbar spine 12/11/2018. FLUOROSCOPY TIME: 8 seconds. FINDINGS: A single fluoroscopic spot image of the lower lumbar spine demonstrates pedicle screws and rods at L4-L5. The hardware appears intact. IMPRESSION: Fluoroscopy provided for L4-5 posterior decompression and fusion. Electronically signed by: Patrick Alvarado M.D. 01/16/2019 3:07 PM
--- NOTE | 2019-01-16 15:26 | Anesthesiology Progress Note ---
Date of Service January 16, 2019 Anesthesia Post Procedure Vital Signs Vital Signs: Temp Pulse Resp BP Pulse Ox 01/16/19 15:10 37.0 C 68 21 132/48 L 98 01/16/19 15:03 37.0 C 69 16 130/46 L 100 01/16/19 11:35 36.7 C 72 16 144/74 H 96 Pain Intensity Back: Pain Intensity: 3 Transfer of Care Handoff Completed per policy Notes Mental Status: alert / awake / arousable and participated in evaluation Patient Amnestic to Procedure: Yes Nausea / Vomiting: adequately controlled Pain: improving with treatment Airway Patency, RR, SpO2: stable & adequate BP & HR: stable & adequate Hydration State: stable & adequate Anesthetic Complications: no major complications apparent and Pt Satisfied with anesthetic care
--- NOTE | 2019-01-16 15:46 | Operative Report ---
DATE OF OPERATION: 01/16/2019 PREOPERATIVE DIAGNOSES: Severe stenosis lumbar spine, L3-L4, L4-L5, also a grade 1 spondylolisthesis L4-L5. POSTOPERATIVE DIAGNOSES: Severe stenosis lumbar spine, L3-L4, L4-L5, also a grade 1 spondylolisthesis L4-L5. PROCEDURE: Include 1. Lumbar spine laminectomy L3-L4, L4-L5, foraminotomy, partial facetectomies. 2. Pedicle screw instrumentation and fusion at L4-L5. DESCRIPTION OF PROCEDURE: The patient was identified in the preop holding area. A formal bridge note provided in the computer. She was marked in preoperative holding. She was brought back to the operating room and general intubated anesthetic provided to the patient, placed prone, scrubbed, prepped and draped sterile. We made a skin incision, fascial incision, dissecting soft tissue in same plane, and put in a deep self-retaining retractor, I could visualize all elements. We carefully dissected free the cauda equina between L4-L5 and L3-L4. There was significant amount of generic stenosis plus synovial cyst ligamentum flavum hypertrophy, some facet joint hypertrophy as well. I was very pleased with the decompression portion of procedure. I felt that we destabilized the patient to a modest degree, taking out some of the facet joints. I thought it was somewhat needed to do a fusion just to be on the safe side. Pedicle screws were safely placed. The pedicles on the left hand side at 4 and 5. I was unsuccessful in getting a pedicle screw into the 4 vertebral body. We then bone grafted out the transverse process, combination of autograft, morselized and DBM which is a demineralized bone matrix. This completed the fusion. We irrigated and closed over vancomycin powder over a Hemovac drain. Sterile dressings applied. The patient returned to PACU improved, stable condition. There were no apparent complications. BLOOD LOSS: 150 mL. I attest to the content of the Intraoperative Record and any orders documented therein. Any exception s are noted below.
[2019-01-16] MEDS ORDERED: DO NOT ADMINISTER FLU VACCINE PRN (16:15)
[2019-01-16] MEDS ORDERED: ONDANSETRON 4 MG TAB PO PRN (16:15)
[2019-01-16] MEDS ORDERED: ALUMINUM/MAGNESIUM SUSP 30 ML UDC PO PRN (16:15)
[2019-01-16] MEDS ORDERED: PROMETHAZINE HCL 12.5 MG in SODIUM CHLORIDE 0.9% 50 ML IV PRN (16:15)
[2019-01-16] MEDS ORDERED: bisacodyL 10 MG SUPP PR PRN (16:15)
[2019-01-16] MEDS ORDERED: MAGNESIUM HYDROXIDE SUSP 30 ML UDC PO PRN (16:15)
[2019-01-16] MEDS ORDERED: SOD PHOSPHATE/SOD BIPHOSPHATE ENEMA 132 ML BTL PR PRN (16:15)
[2019-01-16] MEDS ORDERED: FAMOTIDINE 20 MG TAB PO PRN (16:15)
[2019-01-16] MEDS ORDERED: DO NOT ADMINISTER PNEUMOCOCCAL VACCINE PRN (16:15)
[2019-01-16] MEDS ORDERED: NALOXONE HCL 0.4 MG/1 ML VIAL/CARP IV PRN (16:15)
[2019-01-16] MEDS ORDERED: HYDROmorphone INJ 0.5 MG/0.5 ML SYR IV PRN (16:15)
[2019-01-16] MEDS ORDERED: PHARMACY GLYCEMIC MGMT CONSULT PRN (16:54)
[2019-01-16] MEDS: SODIUM CHLORIDE 0.9% 1000ML 1,000 ML IV SCH (16:56)
[2019-01-16] MEDS ORDERED: GLUCAGON FOR INJ 1 MG VIAL SQ PRN (17:15)
[2019-01-16] MEDS ORDERED: GLUCOSE 10 TABS/TUBE PO PRN (17:15)
[2019-01-16] MEDS ORDERED: GLUCOSE 40% GEL 15 GM TUBE PO PRN (17:15)
[2019-01-16] MEDS ORDERED: CARBOHYDRATES FOR HYPOGLYCEMIA PO PRN (17:15)
[2019-01-16] MEDS ORDERED: DEXTROSE 50% 50 ML SYRINGE IV PRN (17:15)
[2019-01-16] MEDS ORDERED: NovoLIN-N (NPH) PER UNIT CHARGE SQ ONE (17:15)
[2019-01-16] MEDS: INSULIN ASPART 100 UNITS/ML 3 ML PEN SC SCH ×3 (18:11→23:59)
[2019-01-16] MEDS ORDERED: METFORMIN 750 MG PO SCH (21:00)
[2019-01-16] MEDS: CEFAZOLIN 2000MG 2,000 MG/15 ML SYR IV SCH (21:09)
[2019-01-16] MEDS: ACETAMINOPHEN 1,000 MG/100 ML VIAL IV PRN (21:10)
[2019-01-16] MEDS: MULTIVITAMIN TAB PO SCH (21:11)
[2019-01-16] MEDS: ASPIRIN 81 MG ECTAB PO SCH (21:11)
[2019-01-16] MEDS: ATORVASTATIN 20 MG TAB PO SCH (21:11)
[2019-01-16] MEDS: METOPROLOL SUCC 50MG EXT REL TAB PO SCH (21:12)
[2019-01-16] MEDS: AMLODIPINE BESYLATE 5 MG TAB PO SCH (21:12)
[2019-01-16] MEDS: DOCUSATE SODIUM/SENNA 50/8.6MG TAB PO SCH (21:13)
--- NOTE | 2019-01-16 21:42 | Pharmacy Report ---
Pharmacy Glycemic Short Note 2 - Date of Service January 16, 2019 - Glycemic Short BSG Results (Last 24 hours): 01/16/19 01/16/19 01/16/19 11:21 15:52 16:33 POC Glucose 149 H 166 H 187 H 01/16/19 01/16/19 20:10 20:50 POC Glucose 144 H 143 H OUTPATIENT ANTIDIABETIC REGIMEN: * metformin 750 mg PO BID * A1c = 5.9% (Apr 2017) - updated A1c ordered ASSESSMENT: * 83 yr old T2DM female s/p laminectomy, spinal fusion * Pt is maintained on oral antidiabetic agents as an outpatient * Oral agents are not recommended for inpatient use d/t drug interactions, changing PO intake, and difficulty titrating for acute hyper/hypoglycemia. ADA recommends re-initiating outpatient oral agents 1-2 days prior to discharge if/when appropriate if they were held on admission. * Will hold oral agents for admission and utilize SQ basal bolus insulin regimen which is the recommended regimen for inpatient glycemic control. * Will initiate weight based insulin dosing for insulin kerrie patient and titrate based on BSG trends. * Novolog coverage will be based on weight/stress of 3 initially due to administration of IV dexamethasone. I suspect this will need to be loosened on 10/4 AM once steroid effect has worn off. PLAN FOR INPATIENT GLYCEMIC CONTROL: * Hold outpatient oral diabetes medications * Basal insulin * NPH 25 units SQ x 1 dose * Bolus insulin * NovoLog per scale ACHS or Q6hrs while NPO * Goal Range: Low 110 mg/dL - High 140 mg/dL * Correction Factor: 20 mg/dL/unit * Nutritional / Prandial insulin per carb ratio of 1 unit per 7 grams CHO consumed
[2019-01-17] MEDS: INSULIN ASPART 100 UNITS/ML 3 ML PEN SC SCH ×5 (04:07→21:09)
[2019-01-17] MEDS: CEFAZOLIN 2000MG 2,000 MG/15 ML SYR IV SCH (05:42)
[2019-01-17] MEDS: LEVOTHYROXINE SODIUM 125 MCG TABLET PO SCH (05:42)
[2019-01-17] MEDS: SODIUM CHLORIDE 0.9% 1000ML 1,000 ML IV SCH (05:43)
[2019-01-17] MEDS: OXYCODONE HCL IR 5 MG TAB (IMMEDIATE RELEASE) PO PRN ×3 (05:44→21:11)
[2019-01-17 06:24] LABS: Estimated Average Glucose 131 mg/dl; Hemoglobin A1C 6.2 % (4.5-5.6)
[2019-01-17] MEDS: ACETAMINOPHEN 1,000 MG/100 ML VIAL IV PRN (07:42)
--- NOTE | 2019-01-17 07:47 | Anesthesiology Progress Note ---
Date of Service January 17, 2019 Anesthesia Post Procedure Vital Signs Vital Signs: Temp Pulse Pulse Pulse Pulse Resp BP 01/17/19 03:07 36.8 C 66 16 01/16/19 23:28 36.6 C 70 16 01/16/19 20:57 72 01/16/19 19:50 36.4 C L 62 20 01/16/19 19:13 36.4 C L 70 16 01/16/19 18:14 36.4 C L 64 16 01/16/19 17:13 36.4 C L 65 16 01/16/19 16:48 36.4 C L 64 16 01/16/19 16:01 57 L 14 01/16/19 16:00 57 L 13 132/51 L 01/16/19 15:56 58 L 20 01/16/19 15:55 59 L 19 140/50 L 01/16/19 15:51 60 16 01/16/19 15:50 58 L 15 129/53 L 01/16/19 15:46 57 L 12 01/16/19 15:45 36.5 C 57 L 13 134/57 L 01/16/19 15:40 59 L 15 130/42 L 01/16/19 15:36 59 L 16 01/16/19 15:35 58 L 12 125/48 L 01/16/19 15:31 59 L 16 01/16/19 15:30 60 19 129/49 L 01/16/19 15:27 63 16 01/16/19 15:26 68 17 112/52 L 01/16/19 15:25 64 14 01/16/19 15:21 61 14 128/55 L 01/16/19 15:20 61 16 01/16/19 15:16 65 16 01/16/19 15:15 68 19 123/40 L 01/16/19 15:11 68 13 01/16/19 15:10 37.0 C 68 68 16 132/48 L 01/16/19 15:06 68 14 01/16/19 15:05 69 17 130/46 L 01/16/19 15:04 72 16 01/16/19 15:03 37.0 C 72 69 17 129/56 L 01/16/19 11:35 36.7 C 72 16 BP BP Pulse Ox 01/17/19 03:07 126/69 94 01/16/19 23:28 125/67 96 01/16/19 20:57 127/68 01/16/19 19:50 130/71 97 01/16/19 19:13 116/62 94 01/16/19 18:14 115/67 96 01/16/19 17:13 130/66 97 01/16/19 16:48 134/62 100 01/16/19 16:01 100 01/16/19 16:00 100 01/16/19 15:56 100 01/16/19 15:55 100 01/16/19 15:51 100 01/16/19 15:50 01/16/19 15:46 100 01/16/19 15:45 100 01/16/19 15:40 100 01/16/19 15:36 100 01/16/19 15:35 100 01/16/19 15:31 100 01/16/19 15:30 100 01/16/19 15:27 100 01/16/19 15:26 100 01/16/19 15:25 100 01/16/19 15:21 100 01/16/19 15:20 100 01/16/19 15:16 100 01/16/19 15:15 99 01/16/19 15:11 99 01/16/19 15:10 132/48 L 99 01/16/19 15:06 100 01/16/19 15:05 100 01/16/19 15:04 100 01/16/19 15:03 130/46 L 96 01/16/19 11:35 144/74 H 96 Pain Intensity Back: Pain Intensity: 2 Notes Mental Status: alert / awake / arousable and participated in evaluation Patient Amnestic to Procedure: Yes Nausea / Vomiting: adequately controlled Pain: adequately controlled Airway Patency, RR, SpO2: stable & adequate BP & HR: stable & adequate Hydration State: stable & adequate Anesthetic Complications: Pt Satisfied with anesthetic care
[2019-01-17] MEDS: LOSARTAN POTASSIUM 50 MG TAB PO SCH (08:49)
[2019-01-17] MEDS: METOPROLOL SUCC 50MG EXT REL TAB PO SCH ×2 (08:49→21:11)
[2019-01-17] MEDS: hydroCHLOROthiazide 25 MG TAB PO SCH (08:50)
--- NOTE | 2019-01-17 10:03 | Pharmacy Report ---
Pharmacy Glycemic Short Note 2 - Date of Service January 17, 2019 - Glycemic Short BSG Results (Last 24 hours): 01/16/19 01/16/19 01/16/19 11:21 15:52 16:33 POC Glucose 149 H 166 H 187 H 01/16/19 01/16/19 01/16/19 20:10 20:50 23:59 POC Glucose 144 H 143 H 75 01/17/19 01/17/19 04:03 08:03 POC Glucose 111 H 107 H OUTPATIENT ANTIDIABETIC REGIMEN: * metformin 750 mg PO BID * A1c = 6.2% on 01/17/19 ASSESSMENT: 01/17 * Patient received 30 units of insulin yesterday, 25 of this being NPH to cover the intraop Decadron dose * She is now POD #1 * No further steroids are ordered so would anticipate effects of Decadron to wear off ~lunch/dinner today. Will plan to loosen Novolog parameters accordingly. * Since fasting is on the lower side (107 mg/dL), will not plan to provide more basal at this point. Patient also well controlled as an outpatient on just a single oral agent. 01/16 * 83 yr old T2DM female s/p laminectomy, spinal fusion * Pt is maintained on oral antidiabetic agents as an outpatient * Oral agents are not recommended for inpatient use d/t drug interactions, changing PO intake, and difficulty titrating for acute hyper/hypoglycemia. ADA recommends re-initiating outpatient oral agents 1-2 days prior to discharge if/when appropriate if they were held on admission. * Will hold oral agents for admission and utilize SQ basal bolus insulin regimen which is the recommended regimen for inpatient glycemic control. * Will initiate weight based insulin dosing for insulin kerrie patient and titrate based on BSG trends. * Novolog coverage will be based on weight/stress of 3 initially due to administration of IV dexamethasone. I suspect this will need to be loosened on 01/17 AM once steroid effect has worn off. PLAN FOR INPATIENT GLYCEMIC CONTROL: * Continue to hold outpatient oral diabetes medications - SCr ordered for tomorrow AM to ensure metformin can be resumed * No further basal insulin * Bolus insulin - loosen CF/CR * NovoLog per scale ACHS or Q6hrs while NPO * Goal Range: Low 110 mg/dL - High 140 mg/dL * Correction Factor: 30 mg/dL/unit * Nutritional / Prandial insulin per carb ratio of 1 unit per 10 grams CHO c onsumed Discharge Recommendations: * A1c = 6.2% on 01/17/19, which is appropriate for goal < 7% * Recommend to continue metformin on discharge
[2019-01-17] MEDS: ASPIRIN 81 MG ECTAB PO SCH (21:05)
[2019-01-17] MEDS: MULTIVITAMIN TAB PO SCH (21:06)
[2019-01-17] MEDS: ATORVASTATIN 20 MG TAB PO SCH (21:06)
[2019-01-17] MEDS: AMLODIPINE BESYLATE 5 MG TAB PO SCH (21:07)
[2019-01-17] MEDS: DOCUSATE SODIUM/SENNA 50/8.6MG TAB PO SCH (21:10)
[2019-01-18] MEDS: LEVOTHYROXINE SODIUM 125 MCG TABLET PO SCH (06:25)
[2019-01-18] MEDS: OXYCODONE HCL IR 5 MG TAB (IMMEDIATE RELEASE) PO PRN ×2 (06:26→13:13)
[2019-01-18] MEDS: ACETAMINOPHEN 1,000 MG/100 ML VIAL IV PRN (07:29)
[2019-01-18 07:57] LABS: Creatinine Clr Calc Pharmacy 38.7 ml/min; Est GFR (African American) 51.9; Est GFR (Non-African American) 44.8
[2019-01-18] MEDS ORDERED: METFORMIN HCL 850 MG TAB PO SCH ×2 (08:00→09:00)
[2019-01-18] MEDS: hydroCHLOROthiazide 25 MG TAB PO SCH (08:36)
[2019-01-18] MEDS: METOPROLOL SUCC 50MG EXT REL TAB PO SCH (08:36)
[2019-01-18] MEDS: LOSARTAN POTASSIUM 50 MG TAB PO SCH (08:36)
[2019-01-18] MEDS: INSULIN ASPART 100 UNITS/ML 3 ML PEN SC SCH ×2 (08:37→13:11)
--- NOTE | 2019-01-18 09:24 | Discharge Summary ---
She is alert, oriented this morning. No significant complaints. Had an uneventful 48-hour course. She had a fairly significant reconstructive spine surgery for an 83-year-old female. She is improved, stable, alert, oriented, no chest pain or shortness of breath. Ambulatory. PLAN: She will be discharged home later on this afternoon. She has a followup appointment in 10 days. She has prescriptions on her chart. She has instructions given in the office and a packet of instructions here today. Careful bending, stooping, and lifting. Keep the wound clean and dry.
== END 2019-01-18 14:01 | disposition home health service (06) | DRG 460 ==
LOC: ASU 10:40 → 3E 15:01

== ENCOUNTER 2022-06-13 10:27 | Inpatient (IN) ==
[2022-06-13] MEDS ORDERED: SODIUM CHLORIDE 0.9% 1000ML 500 ML IV SCH (11:15)
--- NOTE | 2022-06-13 11:28 | Emergency Department Note ---
History of Present Illness General Chief complaint: Illness Stated complaint: WEAKNESS, LETHARGIC, HYPERGLYCEMIA Time Seen by Provider: 06/13/22 11:00 History of Present Illness Provider complaint: Weakness falls UTI Onset (ago): day(s) 2 87-year-old female presents emergency department with daughter for weakness falls and UTI. Patient states she was diagnosed with a UTI on Sunday and started on Bactrim. She states since then she has been having increasing weakness nausea and cannot eat. Patient states she has fallen multiple times since Sunday. No hematemesis hematuria bilious vomiting coffee-ground emesis melena or hematochezia. No fevers. No chest pain or difficulty breathing. Home Medications Medication Instructions Recorded Confirmed Type amlodipine 10 mg tablet 10 mg PO QPM #90 tabs 01/01/19 06/13/22 History atorvastatin 20 mg tablet 20 mg PO HS #90 tabs 01/01/19 06/13/22 History cholecalciferol (vitamin D3) 50 2,000 units PO QAM 01/01/19 06/13/22 History mcg (2,000 unit) tablet diphenhydramine HCl 25 mg tablet 25 mg PO HS PRN Sleep 01/01/19 06/13/22 History losartan 100 mg tablet 100 mg PO QAM #90 tabs 01/01/19 06/13/22 History metoprolol succinate 50 mg 50 mg PO BID #180 tabs 01/01/19 06/13/22 History tablet,extended release 24 hr multivitamin 1 tab PO QPM 01/01/19 06/13/22 History levothyroxine 100 mcg tablet 100 mcg PO DAILY 10/28/21 06/13/22 History hydrochlorothiazide 12.5 mg capsule 12.5 mg PO DAILY 06/13/22 06/13/22 History ibuprofen 100 mg chewable tablet 400 mg PO Q6H PRN Pain 06/13/22 06/13/22 History sulfamethoxazole 800 1 tab PO BID 06/13/22 06/13/22 History mg-trimethoprim 160 mg tablet Allergies Allergy/AdvReac Type Severity Reaction Status Date / Time No Known Allergies Allergy Verified 06/13/22 13:54 Past Med/Surg History Medical History (Updated 06/13/22 @ 19:31 by Tyler Barrios MD) Atrial tachycardia follows w/cardiology Chronic back pain RESOLVED WITH SURGERY Diabetes mellitus, type 2 NIDDM Hearing deficit B/L STEVENSON Hyperlipidemia Hypertension Hypothyroidism Osteoarthritis Surgical History History of appendectomy History of cataract surgery History of colonoscopy History of femoral hernia repaired History of knee replacement procedure of left knee History of knee replacement procedure of right knee History of ovarian cystectomy x 2 History of tubal ligation Social History Smoking Status: Former smoker Tobacco Type: Cigarettes Age Quit Using Tobacco: 38; Second Hand Exposure: Yes ( used to smoke - 1999); Hx Alcohol Use: No Hx Substance Use: No Preferred Language: Togolese Communication Ability: Effective Visual Impairment: Limited Hearing Ability: Use of Hearing Aid [employer] Administrator Required: No Beliefs That Will Affect Care: None marital status: / Current Living Situation: Alone current occupational status: retired How many Children do You have: 4 How many Children do You have Comment: ONE CHILD LIVES LOCALLY AND IS ABLE TO ASSIST WITH CARE NEEDED Feels Safe at Home: Yes Safety Concerns: Feels Safe At This Time Diet Comment: WATCHES CARBOHYDRATES during the past year weight has: remained stable Assistive Devices: Walker Physical Exam Vital Signs Vital Signs - 24 hr 06/13/22 10:35 06/13/22 11:05 06/13/22 10:38 Temperature 36.7 C Temperature Source Oral Pulse Rate 72 73 Pulse Rate from SpO2 Sensor Respiratory Rate 21 19 Respiratory Effort / Characteristics Non-Labored Spontaneous Respiratory Depth Normal Respiratory Pattern Regular Blood Pressure 103/59 L Blood Pressure Mean 73 Blood Pressure Position Semi-fowlers Pulse Oximetry 100 Oxygen Delivery Method Room Air Room Air Sepsis Recent Fever Within 48 Hours No Sepsis New/Unexplained Change in Mental Status N/A Sepsis Action Taken by Nursing No Action Required 06/13/22 11:00 06/13/22 11:00 06/13/22 12:00 Temperature Temperature Source Pulse Rate 73 69 Pulse Rate from SpO2 Sensor 71 Respiratory Rate 15 21 Respiratory Effort / Characteristics Respiratory Depth Respiratory Pattern Blood Pressure 110/45 L Blood Pressure Mean 66 Blood Pressure Position Pulse Oximetry 97 Oxygen Delivery Method Room Air Sepsis Recent Fever Within 48 Hours Sepsis New/Unexplained Change in Mental Status Sepsis Action Taken by Nursing 06/13/22 12:01 06/13/22 12:01 06/13/22 12:30 Temperature Temperature Source Pulse Rate 74 Pulse Rate from SpO2 Sensor Respiratory Rate 21 Respiratory Effort / Characteristics Respiratory Depth Respiratory Pattern Blood Pressure 100/54 L 129/52 L Blood Pressure Mean 69 77 Blood Pressure Position Pulse Oximetry Oxygen Delivery Method Sepsis Recent Fever Within 48 Hours Sepsis New/Unexplained Change in Mental Status Sepsis Action Taken by Nursing 06/13/22 12:30 06/13/22 13:00 06/13/22 13:30 Temperature Temperature Source Pulse Rate 72 Pulse Rate from SpO2 Sensor 71 69 68 Respiratory Rate 18 Respiratory Effort / Characteristics Respiratory Depth Respiratory Pattern Blood Pressure Blood Pressure Mean Blood Pressure Position Pulse Oximetry 100 96 98 Oxygen Delivery Method Room Air Room Air Room Air Sepsis Recent Fever Within 48 Hours Sepsis New/Unexplained Change in Mental Status Sepsis Action Taken by Nursing 06/13/22 14:00 Temperature Temperature Source Pulse Rate Pulse Rate from SpO2 Sensor 71 Respiratory Rate Respiratory Effort / Characteristics Respiratory Depth Respiratory Pattern Blood Pressure Blood Pressure Mean Blood Pressure Position Pulse Oximetry 100 Oxygen Delivery Method Room Air Sepsis Recent Fever Within 48 Hours Sepsis New/Unexplained Change in Mental Status Sepsis Action Taken by Nursing Physical Exam HENT: Exam performed. -Head: Normocephalic. -Right Ear: External ear normal. No mastoid tenderness. -Left Ear: External ear normal. No mastoid tenderness. -Mouth/Throat: The oropharynx is clear and moist. No trismus in the jaw. No dental abscesses or uvula swelling. No oropharyngeal exudate or tonsillar ab scesses. EYES: Conjunctivae and EOM are normal. Pupils are equal, round, and reactive to light. Right eye exhibits no discharge. Left eye exhibits no discharge. No scleral icterus. Right high periorbital ecchymosis. No hyphema bilaterally. NECK: Normal range of motion. Neck supple. No JVD present. No spinous process tenderness present. CV: Normal rate, irregular rhythm, normal heart sounds and intact distal pulses. There is no peripheral edema. Palpable radial pulses bue. PULM/CHEST: Effort normal and breath sounds normal. No respiratory distress. No stridor. She has no wheezes. She has no rales. -Chest Wall: She exhibits no tenderness. ABD: The abdomen is soft. There is no tenderness. There is no rebound, no guarding. MUSC/SKEL: Pelvis stable. NEURO: Motor and sensation grossly intact. Course Course 1100: The patient was evaluated in room B12. A complete history and physical exam was performed Administered Medications Magnesium Sulfate/Dextrose (Magnesium Sulfate / D5w) 1 gm in 100 mls @ 50 mls/hr IV Q2H ADAM Stop: 06/13/22 20:14 Last Admin: 06/13/22 18:45 Dose: 50 mls/hr Documented By: AUSTYN Ceftriaxone Sodium 1,000 mg/ (Dextrose) 50 mls @ 100 mls/hr IV Q24H ADAM; Protocol Stop: 06/18/22 16:44 Last Infusion: 06/13/22 18:44 Dose: 0 mls/hr Documented By: Admin: 06/13/22 17:48 Dose: 100 mls/hr Documented By: AUSTYN Insulin Aspart (Insulin Aspart Per Unit) 0 units SC ACHS ADAM Stop: 07/13/22 16:29 Last Admin: 06/13/22 17:23 Dose: Not Given Documented By: AUSTYN Discontinued Medications Sodium Chloride (Nss 1000ml) 500 mls @ 999 mls/hr IV .Q31M ADAM Stop: 06/13/22 11:45 Last Infusion: 06/13/22 12:05 Dose: 0 mls/hr Documented By: Admin: 06/13/22 11:30 Dose: 999 mls/hr Documented By: RAYMOND Magnesium Sulfate/Dextrose (Magnesium Sulfate / D5w) 1 gm in 100 mls @ 100 mls/hr IV NOW STA Stop: 06/13/22 14:52 Last Infusion: 06/13/22 17:53 Dose: 0 mls/hr Documented By: Admin: 06/13/22 14:17 Dose: 100 mls/hr Documented By: NATA Cefepime HCl (Maxipime) 2,000 mg in 20 mls @ 5 mls/min IV NOW STA; Protocol Stop: 06/13/22 13:56 Last Admin: 06/13/22 14:16 Dose: 5 mls/min Documented By: ML Sodium Chloride (Nss 1000ml) 1,000 mls @ 999 mls/hr IV .Q1H1M ONE Stop: 06/13/22 14:58 Last Infusion: 06/13/22 17:53 Dose: 0 mls/hr Documented By: Admin: 06/13/22 14:17 Dose: 999 mls/hr Documented By: NATA Insulin Human Regular (Novolin-R Insulin Per Unit Charge) 5 units IV NOW STA Stop: 06/13/22 14:23 Last Admin: 06/13/22 14:31 Dose: 5 units Documented By: NATA Co-signed By: JAGRUTI Potassium Chloride (Potassium Chloride Crtab 20 Meq Tabcr) 20 meq PO NOW STA Stop: 06/13/22 14:23 Last Admin: 06/13/22 14:31 Dose: 20 meq Documented By: NATA Medical Decision Making Medical Records Attestation: I reviewed the patient's medical records. External medical records reviewed. Patient's baseline creatinine is 1 Laboratory Data Attestation: I reviewed the patient's lab results. 06/13/22 11:24 06/13/22 11:24 Lab Results 06/13/22 06/13/22 06/13/22 Range/Units 11:24 11:24 11:24 WBC 8.72 (4.8-10.8) K/ul RBC 3.80 L (4.20-5.40) M/uL Hgb 11.7 L (12.0-16.0) g/dl Hct 33.7 L (37.0-47.0) % MCV 88.7 (80.0-100.0) fL MCH 30.8 (25.0-34.0) pg MCHC 34.7 (32.0-36.0) g/dL RDW Std Deviation 43.5 (36.4-46.3) fL RDW Coeff of Vern 13.3 (11.5-14.5) % Plt Count 233 (130-400) K/uL MPV 10.7 (9.4-12.4) fL Immature Gran % (Auto) 1.3 % Neut % (Auto) 66.1 % Lymph % (Auto) 21.0 % [place] % (Auto) 9.6 % Eos % (Auto) 1.1 % Baso % (Auto) 0.9 % Neut # (Auto) 5.76 (1.40-6.50) K/uL Lymph # (Auto) 1.83 (1.2-3.4) K/uL [place] # (Auto) 0.84 H (0.11-0.59) K/uL Eos # (Auto) 0.10 (0-0.50) K/uL Baso # (Auto) 0.08 (0-0.2) K/uL Immature Gran # (Auto) 0.11 (0.01-0.20) K/uL PT 11.4 (9.0-12.0) Seconds INR 1.1 (0.9-1.1) APTT 23.0 (21.0-31.0) Seconds PTT Ratio 0.8 Sodium 130 L (136-145) mmol/L Potassium 3.4 L (3.5-5.1) mmol/L Chloride 100 (98-107) mmol/L Carbon Dioxide 23 (21-32) mmol/L Anion Gap 7 (3-11) BUN 40 H (6-23) mg/dl Creatinine 2.48 H (0.6-1.2) mg/dl Est Cr Clr Drug Dosing 14.4 ml/min Est GFR ( Amer) 19.3 ml/min Est GFR (Non-Af Amer) 16.6 ml/min BUN/Creatinine Ratio 16.1 (10-20) Glucose 449 H* (70-99(Fasting)) mg/dl Lactate (0.4-2.0) mmol/L Calcium 9.8 (8.5-10.1) mg/dl Magnesium 1.3 L (1.7-2.4) mg/dl Total Bilirubin 0.7 (0.2-1.0) mg/dl Direct Bilirubin 0.1 (0-0.2) mg/dl AST 18 (13-39) U/L ALT 17 (7-52) U/L Alkaline Phosphatase 65 (34-104) U/L Troponin I High Sens 6.4 (0-14) pg/ml Total Protein 6.1 (6.0-8.3) gm/dl Albumin 3.6 (3.4-5.0) gm/dl Procalcitonin (0-0.5) ng/ml SARS-CoV-2, RNA, NAAT (NEGATIVE) 06/13/22 06/13/22 06/13/22 Range/Units 11:24 11:24 11:30 WBC (4.8-10.8) K/ul RBC (4.20-5.40) M/uL Hgb (12.0-16.0) g/dl Hct (37.0-47.0) % MCV (80.0-100.0) fL MCH (25.0-34.0) pg MCHC (32.0-36.0) g/dL RDW Std Deviation (36.4-46.3) fL RDW Coeff of Vern (11.5-14.5) % Plt Count (130-400) K/uL MPV (9.4-12.4) fL Immature Gran % (Auto) % Neut % (Auto) % Lymph % (Auto) % [place] % (Auto) % Eos % (Auto) % Baso % (Auto) % Neut # (Auto) (1.40-6.50) K/uL Lymph # (Auto) (1.2-3.4) K/uL [place] # (Auto) (0.11-0.59) K/uL Eos # (Auto) (0-0.50) K/uL Baso # (Auto) (0-0.2) K/uL Immature Gran # (Auto) (0.01-0.20) K/uL PT (9.0-12.0) Seconds INR (0.9-1.1) APTT (21.0-31.0) Seconds PTT Ratio Sodium (136-145) mmol/L Potassium (3.5-5.1) mmol/L Chloride (98-107) mmol/L Carbon Dioxide (21-32) mmol/L Anion Gap (3-11) BUN (6-23) mg/dl Creatinine (0.6-1.2) mg/dl Est Cr Clr Drug Dosing ml/min Est GFR ( Amer) ml/min Est GFR (Non-Af Amer) ml/min BUN/Creatinine Ratio (10-20) Glucose (70-99(Fasting)) mg/dl Lactate 2.8 H* (0.4-2.0) mmol/L Calcium (8.5-10.1) mg/dl Magnesium (1.7-2.4) mg/dl Total Bilirubin (0.2-1.0) mg/dl Direct Bilirubin (0-0.2) mg/dl AST (13-39) U/L ALT (7-52) U/L Alkaline Phosphatase (34-104) U/L Troponin I High Sens (0-14) pg/ml Total Protein (6.0-8.3) gm/dl Albumin (3.4-5.0) gm/dl Procalcitonin < 0.05 (0-0.5) ng/ml SARS-CoV-2, RNA, NAAT NEGATIVE (NEGATIVE) Imaging Data Attestation: I personally reviewed and interpreted this imaging study as follows: My Impression: Chest x-ray negative. Airway clear. No pneumothorax. No consolidation. No cardiomegaly or cephalization.. No free air under the diaphragm. No fractures of the skeletal structures. Atelectasis at the left base. Radiologist's Impression: Abdomen/Pelvis CT 06/13/22 11:04 CT abd pelvis wo con CLINICAL HISTORY: dysuria vomiting cva tenderness fall TECHNIQUE: Helical axial images of the abdomen and pelvis were obtained. Automated dose lowering techniques and/or adjustment according to patient size were utilized for this exam. This exam was performed without intravenous contrast. COMPARISON: Comparison is made to CT abdomen pelvis 05/24/2018 FINDINGS: Lower chest: No acute abnormality. Liver: Unremarkable. No focal lesions are seen. Gallbladder and biliary tree: No calcified gallstones. Normal caliber wall. No intra- or extrahepatic biliary ductal dilation. Pancreas: Unremarkable, no focal lesions. Spleen: Unremarkable. Adrenals: Unremarkable. Kidneys and ureters: Unremarkable. Bladder: Unremarkable. Reproductive organs: Unremarkable. Bowel: Unremarkable. Lymph nodes Retroperitoneal: Unremarkable. Pelvic: Unremarkable. Mesenteric: Unremarkable. Peritoneum: Normal. Vessels: Atherosclerotic calcifications are seen. Abdominal wall: Soft tissue density near the origin of the left inguinal canal is again seen, nonspecific but may represent postsurgical change. Bones: Degenerative changes in the visualized spine. IMPRESSION: No acute abnormality, in particular no evidence of bowel obstruction. Previously noted pelvic cystic lesions have resolved. ACT 112: Negative or not required by law. Electronically signed by: Dionicio Juárez M.D. 06/13/2022 1:[address] 06/13/22 11:05 CT cervical spine wo con CLINICAL HISTORY: fall TECHNIQUE: Multidetector row helical CT of the cervical spine was performed without administration of intravenous contrast. Coronal and sagittal reformations were obtained. Automated dose lowering techniques and/or adjustment according to patient size were utilized for this exam. Comparison: None available at the time of this dictation. FINDINGS: No acute fractures or subluxations are identified. Degenerative changes are seen in the visualized spine. The alignment is normal. Soft tissues are unremarkable. IMPRESSION: Degenerative changes without evidence of acute bony injury. ACT 112: Negative or not required by law. Electronically signed by: Dionicio Juárez M.D. 06/13/2022 12:40 PM Chest X-Ray 06/13/22 11:05 XR chest 1V portable HISTORY: Sepsis COMPARISON: Chest 10/24/2021. FINDINGS: The lungs are clear. Cardiac silhouette is normal in size. No pleural effusions. No pneumothorax. The lungs remain hyperexpanded. There are calcifications within the aortic knob. IMPRESSION: No acute process. ACT 112: Negative or not required by law. Electronically signed by: Patrick Alvarado M.D. 06/13/2022 12:[address] 06/13/22 11:[address] DOSE: HISTORY: fall TECHNIQUE: Multiaxial CT images of the maxillofacial region were performed and reformatted in the coronal plane without the use of contrast. A dose lowering technique was utilized adhering to the principles of ALARA. COMPARISON: None. FINDINGS: The visualized cervical spine, skull base, pterygoid plates, nasal bones, lamina papyracea, orbital floors, mandible, and zygomatic arches are intact. No fractures. The orbits are unremarkable. IMPRESSION: No fractures within the maxillofacial region. ACT 112: Negative or not required by law. Electronically signed by: Patrick Alvarado M.D. 06/13/2022 12:[address] 06/13/22 11:05 CT head/brain wo con CLINICAL HISTORY: 87 years-old Female with fall. Acute head trauma status post fall TECHNIQUE: Multiple axial CT images of the head were obtained without contrast. A dose lowering technique was utilized adhering to the principles of ALARA. COMPARISON: CT cervical and maxillofacial studies of same day FINDINGS: No acute intracranial hemorrhage, midline shift, intracranial mass, hydrocephalus, territorial ischemia or abnormal extra-axial collection. Involutional changes with chronic microvascular ischemic disease. Cerebral vascular and senescent basal ganglia calcifications. The calvarium is intact. Prior bilateral lens repair. The paranasal sinuses, mastoid air cells, and middle ear cavities are clear. IMPRESSION: No acute intracranial abnormality or calvarial fracture. ACT 112: Negative or not required by law. The above report was generated using voice recognition software. It may contain grammatical, syntax or spelling errors. Electronically signed by: Ryan Robles M.D. 06/13/2022 12:34 PM ECG Data Attestation: I personally reviewed and interpreted this ECG as follows: Indication: + weakness Rate (beats per minute): 72 Rhythm: + atrial fibrillation ECG Intervals/blocks: + Normal QRS and + Normal QT-c ECG ST segments: + Normal ST segments MDM Narrative Cardiac monitoring: An order was placed for continuous cardiac monitoring. The monitor shows a rate of 70 with atrial fibrilation rhythm interpreted by me Vital signs stable. Imaging shows no acute traumatic injury. Labs are significant for creatinine of 2.48 up from baseline of 1. Patient's initial lactic acid was 2.8. Patient was treated with broad-spectrum IV antibiotics for presumed failure of treatment of UTI leading to sepsis. Magnesium was 1.3. Magnesium repletion was started in the emergency department. Status post 30 cc/kg normal saline bolus the patient's lactic acid improved to 1.4. Patient will be admitted to the [facility] team. Impression & Plan MARILIA (acute kidney injury), Hypomagnesemia, Sepsis Discharge Plan Visit Data Chief Complaint: Illness Stated Complaint: WEAKNESS, LETHARGIC, HYPERGLYCEMIA ED Provider: Carlos Fernandez Discharge Problem: MARILIA (acute kidney injury), Hypomagnesemia, Sepsis Patient Disposition: Admitted As Inpatient Discharge Instructions Interventions: ED Discharge Assessment Last Done: 06/13/22 15:50
--- NOTE | 2022-06-13 12:12 | XRay Report ---
XR chest 1V portable HISTORY: Sepsis COMPARISON: Chest 10/24/2021. FINDINGS: The lungs are clear. Cardiac silhouette is normal in size. No pleural effusions. No pneumot horax. The lungs remain hyperexpanded. There are calcifications within the aortic knob. IMPRESSION: No acute process. ACT 112: Negative or not required by law. Electronically signed by: Patrick Alvarado M.D. 06/13/2022 12:10 PM
[2022-06-13 12:16] LABS: Basophils # (auto) 0.08 K/uL (0-0.2); Basophils % (auto) 0.9 %; Eosinophils % (auto) 1.1 %; Hematocrit (blood only) 33.7 % (37.0-47.0); Hemoglobin 11.7 g/dl (12.0-16.0); Immature Granulocytes # (auto) 0.11 K/uL (0.01-0.20); Immature Granulocytes % (auto) 1.3 %; Lymphocytes # (auto) 1.83 K/uL (1.2-3.4); Mean Corpuscular Hemoglobin 30.8 pg (25.0-34.0); Mean Corpuscular Hgb Conc 34.7 g/dL (32.0-36.0); Mean Corpuscular Volume 88.7 fL (80.0-100.0); Mean Platelet Volume 10.7 fL (9.4-12.4); Monocytes # (auto) 0.84 K/uL (0.11-0.59); Monocytes % (auto) 9.6 %; Neutrophils # (auto) 5.76 K/uL (1.40-6.50); Neutrophils % (auto) 66.1 %; Platelet Count 233 K/uL (130-400); RDW Coefficient of Variation 13.3 % (11.5-14.5); RDW Standard Deviation 43.5 fL (36.4-46.3); White Blood Count 8.72 K/ul (4.8-10.8)
[2022-06-13 12:33] LABS: Albumin Level 3.6 gm/dl (3.4-5.0); BUN Creatinine Ratio 16.1 (10-20); Bilirubin Direct 0.1 mg/dl (0-0.2); Bilirubin,Total 0.7 mg/dl (0.2-1.0); Calcium 9.8 mg/dl (8.5-10.1); Creatinine Clr Calc Pharmacy 14.4 ml/min; Est GFR (African American) 19.3 ml/min; Est GFR (Non-African American) 16.6 ml/min; Magnesium 1.3 mg/dl (1.7-2.4); Potassium 3.4 mmol/L (3.5-5.1); Total Protein 6.1 gm/dl (6.0-8.3); Troponin I High Sensitivity 6.4 pg/ml (0-14)
[2022-06-13 12:34] LABS: INR 1.1 (0.9-1.1); Partial Thromboplastin Ratio 0.8; Prothrombin Time 11.4 Seconds (9.0-12.0)
--- NOTE | 2022-06-13 12:34 | CT Scan Report ---
MAXILLOFACIAL CT CT DOSE: HISTORY: fall TECHNIQUE: Multiaxial CT images of the maxillofacial region were performed and reformatted in the cor onal plane without the use of contrast. A dose lowering technique was utilized adhering to the princ iples of AMBER. COMPARISON: None. FINDINGS: The visualized cervical spine, skull base, pterygoid plates, nasal bones, lamina papyracea, orbital floors, mandible, and zygomatic arches are intact. No fractures. The orbits are unremarkable . IMPRESSION: No fractures within the maxillofacial region. ACT 112: Negative or not required by law. Electronically signed by: Patrick Alvarado M.D. 06/13/2022 12:32 PM
--- NOTE | 2022-06-13 12:36 | CT Scan Report ---
CT head/brain wo con CLINICAL HISTORY: 87 years-old Female with fall. Acute head trauma status post fall TECHNIQUE: Multiple axial CT images of the head were obtained without contrast. A dose lowering tech nique was utilized adhering to the principles of ALARA. COMPARISON: CT cervical and maxillofacial studies of same day FINDINGS: No acute intracranial hemorrhage, midline shift, intracranial mass, hydrocephalus, territorial ischem ia or abnormal extra-axial collection. Involutional changes with chronic microvascular ischemic disea se. Cerebral vascular and senescent basal ganglia calcifications. The calvarium is intact. Prior bilateral lens repair. The paranasal sinuses, mastoid air cells, and m iddle ear cavities are clear. IMPRESSION: No acute intracranial abnormality or calvarial fracture. ACT 112: Negative or not required by law. The above report was generated using voice recognition software. It may contain grammatical, syntax o r spelling errors. Electronically signed by: Ryan Robles M.D. 06/13/2022 12:34 PM
--- NOTE | 2022-06-13 12:42 | CT Scan Report ---
CT cervical spine wo con CLINICAL HISTORY: fall TECHNIQUE: Multidetector row helical CT of the cervical spine was performed without administration of intravenous contrast. Coronal and sagittal reformations were obtained. Automated dose lowering techn iques and/or adjustment according to patient size were utilized for this exam. Comparison: None available at the time of this dictation. FINDINGS: No acute fractures or subluxations are identified. Degenerative changes are seen in the visualized sp ine. The alignment is normal. Soft tissues are unremarkable. IMPRESSION: Degenerative changes without evidence of acute bony injury. ACT 112: Negative or not required by law. Electronically signed by: Dionicio Juárez M.D. 06/13/2022 12:40 PM
--- NOTE | 2022-06-13 13:02 | CT Scan Report ---
CT abd pelvis wo con CLINICAL HISTORY: dysuria vomiting cva tenderness fall TECHNIQUE: Helical axial images of the abdomen and pelvis were obtained. Automated dose lowering tech niques and/or adjustment according to patient size were utilized for this exam. This exam was perfor med without intravenous contrast. COMPARISON: Comparison is made to CT abdomen pelvis 05/24/2018 FINDINGS: Lower chest: No acute abnormality. Liver: Unremarkable. No focal lesions are seen. Gallbladder and biliary tree: No calcified gallstones. Normal caliber wall. No intra- or extrahepatic biliary ductal dilation. Pancreas: Unremarkable, no focal lesions. Spleen: Unremarkable. Adrenals: Unremarkable. Kidneys and ureters: Unremarkable. Bladder: Unremarkable. Reproductive organs: Unremarkable. Bowel: Unremarkable. Lymph nodes Retroperitoneal: Unremarkable. Pelvic: Unremarkable. Mesenteric: Unremarkable. Peritoneum: Normal. Vessels: Atherosclerotic calcifications are seen. Abdominal wall: Soft tissue density near the origin of the left inguinal canal is again seen, nonspec ific but may represent postsurgical change. Bones: Degenerative changes in the visualized spine. IMPRESSION: No acute abnormality, in particular no evidence of bowel obstruction. Previously noted pelvic cystic lesions have resolved. ACT 112: Negative or not required by law. Electronically signed by: Dionicio Juárez M.D. 06/13/2022 1:01 PM
[2022-06-13] MEDS ORDERED: MAGNESIUM SULFATE / D5W 1 GM/100 ML BAG IV STA (13:53)
[2022-06-13] MEDS ORDERED: CEFEPIME 2,000 MG/20 ML VIAL IV STA (13:53)
[2022-06-13] MEDS ORDERED: SODIUM CHLORIDE 0.9% 1000ML 1,000 ML IV ONE (13:58)
[2022-06-13] MEDS ORDERED: POTASSIUM CHLORIDE CRTAB 20 MEQ TABCR PO STA (14:22)
[2022-06-13] MEDS ORDERED: NovoLIN-R INSULIN PER UNIT CHARGE IV STA (14:22)
--- NOTE | 2022-06-13 14:23 | History & Physical Report ---
Date of Service June 13, 2022 Assessment & Plan (1) Generalized weakness: Plan: Unclear if her symptoms are due to UTI +/- Bactrim use +/- MARILIA +/- hypomagnesemia in setting of hypotension and anti-hypertensives. Los suspicion of worsening infection since her urinary symptoms have been improving. Discontinue diphenhydramine HS PRN PT/OT (2) MARILIA (acute kidney injury): Plan: Suspect multifactorial with Bactrim use causing artificial creatinine elevation, hypotension in the setting of multiple antihypertensives and infection. Low suspicion of obstructive cause. No need for imaging unless does not normalize. Normal saline 1.5 L given in the emergency room. We will continue lactated Ringer's at 125 mL/h overnight. (3) Hypomagnesemia: Plan: Magnesium level 1.3. Magnesium sulfate 3 g IV total. Repeat level with a.m. labs (4) UTI (urinary tract infection): Plan: Will request urine culture from [facility] Repeat UA Ceftriaxone 1g IV daily (5) Hypertension: Plan: Stop losartan, amlodipine and hydrochlorothiazide Continue metoprolol succinate with hold parameters (6) Diabetes mellitus, type 2: Plan: Glucose 449 mg/dL in the emergency room. Insulin 5 units IV now. HbA1c with a.m. labs BSG ACHS Novolog: --Goal BSG Range: Low 140 mg/dL, High 180 mg/dL --Correction Factor: 45 mg/dL/unit --Carbohydrate ratio = 15 g/unit --BSGs ACHS if eating, q6h if npo (7) Hypothyroidism: Plan: TSH with a.m. labs Continue levothyroxine 100 mcg p.o. daily Plan VTE prophylaxis -heparin 5000 units twice daily Diet -type 2 diabetes Disposition -admit to [facility] telemetry Admission and Anticipated Discharge Date Admission Date: June 13, 2022 History of Present Illness Chief Complaint: Generalized weakness Primary Care Provider: Rosalinda Dumont MD Brandee Winslow is an 87-year-old female who presents to the ER with generalized weakness and a fall on Sunday. She was recently diagnosed with a urine tract infection treated with Bactrim. Per PCP note seen she was having urinary frequ ency for 10 days prior to being on antibiotics. The patient tells me today it was a few days. Bactrim was started on 06/09/22 for a 7 day course. Since starting the Bactrim she has notice her urinary symptoms improving. She reports dizziness/lightheadedness on standing up. No room spinning sensation. Associated decreased appetite. No diarrhea, bright red blood in stool, melena, odynophagia or dysphagia. She does her problem is usually constipation and she required a laxative 2 days ago. Weakness is generalized and not unilateral. No change in speech, vision or hearing. Allergies Allergy/AdvReac Type Severity Reaction Status Date / Time No Known Allergies Allergy Verified 06/13/22 13:54 Home Medications Medication Instructions Recorded Confirmed Type amlodipine 10 mg tablet 10 mg PO QPM #90 tabs 01/01/19 06/13/22 History atorvastatin 20 mg tablet 20 mg PO HS #90 tabs 01/01/19 06/13/22 History cholecalciferol (vitamin D3) 50 2,000 units PO QAM 01/01/19 06/13/22 History mcg (2,000 unit) tablet diphenhydramine HCl 25 mg tablet 25 mg PO HS PRN Sleep 01/01/19 06/13/22 History losartan 100 mg tablet 100 mg PO QAM #90 tabs 01/01/19 06/13/22 History metoprolol succinate 50 mg 50 mg PO BID #180 tabs 01/01/19 06/13/22 History tablet,extended release 24 hr multivitamin 1 tab PO QPM 01/01/19 06/13/22 History levothyroxine 100 mcg tablet 100 mcg PO DAILY 10/28/21 06/13/22 History hydrochlorothiazide 12.5 mg capsule 12.5 mg PO DAILY 06/13/22 06/13/22 History ibuprofen 100 mg chewable tablet 400 mg PO Q6H PRN Pain 06/13/22 06/13/22 History sulfamethoxazole 800 1 tab PO BID 06/13/22 06/13/22 History mg-trimethoprim 160 mg tablet Past Med/Surg History Medical History (Updated 06/13/22 @ 19:46 by Tyler Barrios MD) Atrial tachycardia follows w/cardiology Chronic back pain RESOLVED WITH SURGERY Diabetes mellitus, type 2 NIDDM Hearing deficit B/L [place] Hyperlipidemia Hypertension Hypothyroidism Osteoarthritis Surgical History History of appendectomy History of cataract surgery History of colonoscopy History of femoral hernia repaired History of knee replacement procedure of left knee History of knee replacement procedure of right knee History of ovarian cystectomy x 2 History of tubal ligation Social History Smoking Status: Former smoker Tobacco Type: Cigarettes Age Quit Using Tobacco: 38; Second Hand Exposure: Yes ( used to smoke - 1999); Hx Alcohol Use: No Hx Substance Use: No Preferred Language: Irish Communication Ability: Effective Visual Impairment: Limited Hearing Ability: Use of Hearing Aid Preload Supervisor Required: No Beliefs That Will Affect Care: None marital status: / Current Living Situation: Alone current occupational status: retired How many Children do You have: 4 How many Children do You have Comment: ONE CHILD LIVES LOCALLY AND IS ABLE TO ASSIST WITH CARE NEEDED Feels Safe at Home: Yes Safety Concerns: Feels Safe At This Time Diet Comment: WATCHES CARBOHYDRATES during the past year weight has: remained stable Assistive Devices: Walker Review of Systems Review of Systems: All systems reviewed & are unremarkable except as noted in HPI & below Physical Exam Constitutional: WD/WN, vitals as above Eyes: PERRL, conjunctivae normal, anicteric sclerae Respiratory: normal respiratory effort, lungs clear to auscultation Cardiovascular: RRR, no murmur, no edema Gastrointestinal (Abdomen): normal bowel sounds, soft, nontender, no hepatosplenomegaly Musculoskeletal: no cyanosis or clubbing, extremities motor strength 5/5 Skin: no rashes, warm and dry Neurologic: moves all extremities and awake; no focal motor deficits and not confused Speech / Cognition: normal speech Motor/Sensory: no tremor, no pronator drift and no sensory deficit Cranial Nerves: PERRL, EOM intact bilaterally, normal facial strength, tongue midline, able to rotate head bilaterally, able to elevate shoulders bilaterally, no nystagmus and symmetric palate elevation Psychiatric: A+Ox3, euthymic affect Genitourinary: no CVA tenderness Results & Data Results & Data ([facility]) Vital Signs (Past 12 Hours) Vital Signs Temp Pulse Resp BP Pulse Ox O2 Del Method 06/13/22 11:05 Room Air 06/13/22 10:35 36.7 C 72 21 103/59 L 100 Room Air Laboratory Results Abnormal lab results 06/13/22 06/13/22 06/13/22 Range/Units 11:24 11:24 11:24 RBC 3.80 L (4.20-5.40) M/uL Hgb 11.7 L (12.0-16.0) g/dl Hct 33.7 L (37.0-47.0) % Faulk # (Auto) 0.84 H (0.11-0.59) K/uL Sodium 130 L (136-145) mmol/L Potassium 3.4 L (3.5-5.1) mmol/L BUN 40 H (6-23) mg/dl Creatinine 2.48 H (0.6-1.2) mg/dl Glucose 449 H* (70-99(Fasting)) mg/dl Lactate 2.8 H* (0.4-2.0) mmol/L Magnesium 1.3 L (1.7-2.4) mg/dl Diagnostic Findings CT head/brain wo con CLINICAL HISTORY: 87 years-old Female with fall. Acute head trauma status post fall TECHNIQUE: Multiple axial CT images of the head were obtained without contrast. A dose lowering technique was utilized adhering to the principles of ALARA. COMPARISON: CT cervical and maxillofacial studies of same day FINDINGS: No acute intracranial hemorrhage, midline shift, intracranial mass, hydrocephalus, territorial ischemia or abnormal extra-axial collection. Involutional changes with chronic microvascular ischemic disease. Cerebral vascular and senescent basal ganglia calcifications. The calvarium is intact. Prior bilateral lens repair. The paranasal sinuses, mastoid air cells, and middle ear cavities are clear. IMPRESSION: No acute intracranial abnormality or calvarial fracture. CT cervical spine wo con CLINICAL HISTORY: fall TECHNIQUE: Multidetector row helical CT of the cervical spine was performed without administration of intravenous contrast. Coronal and sagittal reformations were obtained. Automated dose lowering techniques and/or adjustment according to patient size were utilized for this exam. Comparison: None available at the time of this dictation. FINDINGS: No acute fractures or subluxations are identified. Degenerative changes are seen in the visualized spine. The alignment is normal. Soft tissues are unremarkable. IMPRESSION: Degenerative changes without evidence of acute bony injury. MAXILLOFACIAL CT CT DOSE: HISTORY: fall TECHNIQUE: Multiaxial CT images of the maxillofacial region were performed and reformatted in the coronal plane without the use of contrast. A dose lowering technique was utilized adhering to the principles of ALARA. COMPARISON: None. FINDINGS: The visualized cervical spine, skull base, pterygoid plates, nasal bones, lamina papyracea, orbital floors, mandible, and zygomatic arches are intact. No fractures. The orbits are unremarkable. IMPRESSION: No fractures within the maxillofacial region. XR chest 1V portable HISTORY: Sepsis COMPARISON: Chest 10/24/2021. FINDINGS: The lungs are clear. Cardiac silhouette is normal in size. No pleural effusions. No pneumothorax. The lungs remain hyperexpanded. There are calcifications within the aortic knob. IMPRESSION: No acute process. Medications Administered ER medications given: Normal saline 500 mL bolus Cefepime 2 g IV Magnesium sulfate 1 g IV Normal saline 1 L bolus ECG Rate (beats per minute): 72 Rhythm: normal sinus Findings: + PAC Comparison ECG Date: from (October 24, 2021) Change: no significant change Code Status & VTE Plan Code Status Full VTE Prophylaxis Plan VTE Prophylaxis will be ordered: Yes PG Care Time/CCT Total # of Minutes Spent Total Time Spent with Patient: Total time spent is greater than 50% in coordination of care (as documented) at patient's floor/unit and/or counseling patient: Coding Level of Care Code 96094 INT INP/OBS CARE 3/75MIN Diagnoses Generalized weakness R53.1 MARILIA (acute kidney injury) N17.9 Hypomagnesemia E83.42 UTI (urinary tract infection) N39.0 Hypertension I10 Diabetes mellitus, type 2 E11.9 Hypothyroidism E03.9
--- NOTE | 2022-06-13 14:47 | Electrocardiogram Report ---
Test Reason : Blood Pressure : / mmHG Vent. Rate : 072 BPM Atrial Rate : 071 BPM P-R Int : 000 ms QRS Dur : 090 ms QT Int : 426 ms P-R-T Axes : 000 031 052 degrees QTc Int : 466 ms Poor data quality, interpretation may be adversely affected Normal sinus rhythm with occasional Premature atrial complexes Abnormal ECG When compared with ECG of 24-OCT-2021 11:29, No significant change Confirmed by Leo Rowland ([id number]) on 06/13/2022 2:47:29 PM Referred By: Confirmed By:Leo Rowland
[2022-06-13] MEDS ORDERED: ACETAMINOPHEN 325 MG TAB PO PRN (15:24)
[2022-06-13] MEDS ORDERED: CARBOHYDRATES FOR HYPOGLYCEMIA PO PRN (15:24)
[2022-06-13] MEDS ORDERED: GLUCOSE 10 TAB/TUBE PO PRN (15:24)
[2022-06-13] MEDS ORDERED: DEXTROSE 50% 50 ML SYRINGE IV PRN (15:24)
[2022-06-13] MEDS ORDERED: GLUCOSE 40% GEL 15 GM TUBE PO PRN (15:24)
[2022-06-13] MEDS ORDERED: ONDANSETRON INJ 2 MG/ML 2 ML VIAL IV PRN (15:24)
[2022-06-13] MEDS ORDERED: POLYETHYLENE (MIRALAX) 17 GM PACK PO PRN (15:24)
[2022-06-13] MEDS ORDERED: GLUCAGON FOR INJ 1 MG VIAL SQ PRN (15:24)
[2022-06-13] MEDS ORDERED: diphenhydrAMINE Capsule 25 MG CAP PO PRN (16:32)
--- NOTE | 2022-06-13 16:33 | Electrocardiogram Report ---
Test Reason : Blood Pressure : / mmHG Vent. Rate : 072 BPM Atrial Rate : 072 BPM P-R Int : 144 ms QRS Dur : 088 ms QT Int : 444 ms P-R-T Axes : 079 026 045 degrees QTc Int : 486 ms Poor data quality, interpretation may be adversely affected Sinus rhythm with Premature atrial complexes Otherwise normal ECG When compared with ECG of 13-JUN-2022 11:44, (unconfirmed) No significant change Confirmed by Leo Rowland ([id number]) on 06/13/2022 4:33:47 PM Referred By: REFERRED SELF Confirmed By:Leo Rowland
[2022-06-13] MEDS: INSULIN ASPART PER UNIT SC SCH ×2 (17:23→21:10)
[2022-06-13] MEDS: cefTRIAXone SODIUM 1,000 MG in DEXTROSE 5% AD-VAN 50 ML IV SCH (17:48)
[2022-06-13] MEDS: MAGNESIUM SULFATE / D5W 1 GM/100 ML BAG IV SCH ×2 (18:45→21:11)
[2022-06-13] MEDS: ATORVASTATIN 20 MG TAB PO SCH (21:14)
[2022-06-13] MEDS: METOPROLOL SUCC 50MG EXT REL TAB PO SCH (21:14)
[2022-06-13] MEDS: LACTATED RINGER'S 1,000 ML IV SCH (21:15)
[2022-06-13] MEDS: HEPARIN SOD 5,000 UNIT/0.5 ML VIAL SQ SCH (21:16)
[2022-06-14] MEDS: LACTATED RINGER'S 1,000 ML IV SCH (05:59)
[2022-06-14] MEDS: LEVOTHYROXINE SODIUM 100 MCG TABLET PO SCH (06:00)
[2022-06-14 07:35] LABS: Basophils # (auto) 0.06 K/uL (0-0.2); Basophils % (auto) 0.9 %; Eosinophils # (auto) 0.26 K/uL (0-0.50); Eosinophils % (auto) 3.8 %; Hematocrit (blood only) 31.7 % (37.0-47.0); Hemoglobin 10.8 g/dl (12.0-16.0); Immature Granulocytes # (auto) 0.09 K/uL (0.01-0.20); Immature Granulocytes % (auto) 1.3 %; Lymphocytes # (auto) 1.72 K/uL (1.2-3.4); Mean Corpuscular Hemoglobin 30.3 pg (25.0-34.0); Mean Corpuscular Hgb Conc 34.1 g/dL (32.0-36.0); Mean Corpuscular Volume 88.8 fL (80.0-100.0); Mean Platelet Volume 10.5 fL (9.4-12.4); Monocytes # (auto) 0.52 K/uL (0.11-0.59); Monocytes % (auto) 7.5 %; Neutrophils # (auto) 4.24 K/uL (1.40-6.50); Neutrophils % (auto) 61.5 %; Platelet Count 180 K/uL (130-400); RDW Coefficient of Variation 13.4 % (11.5-14.5); RDW Standard Deviation 43.8 fL (36.4-46.3); Red Blood Count 3.57 M/uL (4.20-5.40); White Blood Count 6.89 K/ul (4.8-10.8)
[2022-06-14 07:46] LABS: Albumin Globulin Ratio 1.3 (0.9-2); Albumin Level 3.2 gm/dl (3.4-5.0); BUN Creatinine Ratio 14.5 (10-20); Bilirubin,Total 0.8 mg/dl (0.2-1.0); Calcium 9.1 mg/dl (8.5-10.1); Creatinine Clr Calc Pharmacy 22.5 ml/min; Est GFR (Non-African American) 25.9 ml/min; Globulin 2.4 gm/dl (2.5-4.0); Potassium 3.9 mmol/L (3.5-5.1); Total Protein 5.6 gm/dl (6.0-8.3)
[2022-06-14] MEDS: HEPARIN SOD 5,000 UNIT/0.5 ML VIAL SQ SCH ×2 (08:38→21:13)
[2022-06-14] MEDS: INSULIN ASPART PER UNIT SC SCH ×4 (08:42→21:16)
[2022-06-14 08:48] LABS: Appearance Urine Clear (Clear); Bacteria Urine Automated Negative (Negative); Bilirubin Urine Negative (Negative); Blood Urine Negative (Negative); Color Urine Yellow; Epithelial Cell Urine Auto >30 /lpf (0-5); Glucose Urine UA Trace (Negative); Ketones Urine Negative (Negative); Leukocyte Esterase Urine Trace (Negative); Nitrite Urine Negative (Negative); Protein Urine Negative (Negative); RBC Urine Automated 0-4 /hpf (0-4); Specific Gravity Urine 1.011 (1.000-1.030); Urobilinogen Urine Negative (Negative)
[2022-06-14] MEDS: METOPROLOL SUCC 50MG EXT REL TAB PO SCH ×2 (09:37→21:12)
[2022-06-14 10:21] LABS: Magnesium 2.2 mg/dl (1.7-2.4)
[2022-06-14 10:35] LABS: Estimated Average Glucose 237 mg/dl; Hemoglobin A1C 9.9 % (4.5-5.6)
[2022-06-14] MEDS: cefTRIAXone SODIUM 1,000 MG in DEXTROSE 5% AD-VAN 50 ML IV SCH (17:18)
--- NOTE | 2022-06-14 19:27 | Hospitalist Progress Note ---
Date of Service June 14, 2022 Assessment & Plan (1) Generalized weakness: Plan: Likely secondary to MARILIA and hypomagnesemia in setting of hypotension and anti- hypertensives. Low suspicion of worsening urinary infection since her urinary symptoms have been improving and urinalysis here is without evidence of infection. Discontinue diphenhydramine HS PRN PT/OT evaluations placed-recommend to return home Much improved now with IV fluids, improving renal function, and magnesium replacement (2) MARILIA (acute kidney injury): Plan: Suspect multifactorial with Bactrim use, concomitant losartan and HCTZ use, and hypotension CT abdomen/pelvis without evidence of obstruction He is making urine, without acidosis or hyperkalemia. Blood pressures are controlled Received a total of 3.5 L isotonic fluid-we will now discontinue Creatinine 2.5 on arrival and now down to 1.7 Tolerating p.o. Continue to hold home losartan and HCTZ -Follow BMP in the morning -Renally dose medications as needed (3) Hypomagnesemia: Plan: Magnesium level 1.3. Magnesium sulfate 3 g IV total. Repeat level checked this morning and normal. Could be secondary to HCTZ use-recommend discontinuation of this She does not take any PPI No history of chronic diarrhea or poor p.o. intake (4) UTI (urinary tract infection): Plan: Will request urine culture from [facility]-requested but not received yet Repeat UA without evidence of infection and no urinary symptoms currently Took Bactrim prior to arrival-held for acute kidney injury Continue ceftriaxone 1g IV daily through tomorrow but then can discontinue (5) Hypertension: Plan: Blood pressure is low normal on arrival -Continue to hold losartan, amlodipine and will permanently discontinue hydrochlorothiazide Continue metoprolol succinate with hold parameters (6) Diabetes mellitus, type 2: Plan: Glucose 449 mg/dL in the emergency room. Insulin 5 units IV was given initially. Now blood sugars better controlled in the high 100s She was previously on Actos and then converted to metformin many years ago. Her hemoglobin A1c was in the normal range and she was taken off her metformin. She has not checked her sugars in 2 years HbA1c now up to 9.9% BSG ACHS Tighten down NovoLog with goal range down to 100-140, tighten correction factor to 35 and continue carb ratio 115 Plan to restart metformin if creatinine improves prior to discharge Appreciate critical care educator-Will prescribe glucometer and testing supplies at discharge (7) Hypothyroidism: Plan: TSH here is normal at 0.871 Continue levothyroxine 100 mcg p.o. daily Plan VTE prophylaxis -heparin 5000 units twice daily Disposition -continued stay on med telemetry but overall much improved, plan to discharge home tomorrow as long as renal failure continues to improve Discussed all care with her daughter at the bedside Admission and Anticipated Discharge Date Admission Date: June 13, 2022 Subjective Patient feeling so much better than yesterday. She is eating and drinking, making urine. Much stronger and ambulating with physical therapy in the halls. She denies any urinary symptoms. No pain anywhere. Telemetry with normal sinus rhythm, PACs, rates in the 60s. Physical Exam Constitutional: WD/WN, vitals as above Eyes: + eyelid abnormality (Right periorbital ecchymosis) Respiratory: normal respiratory effort, lungs clear to auscultation Cardiovascular: RRR, no murmur, no edema Neurologic: no focal motor deficits and not confused Psychiatric: A+Ox3, euthymic affect Results & Data Results & Data ([facility]) Vital Signs (Past 12 Hours) Vital Signs Temp Pulse Pulse Resp BP BP Pulse Ox 06/14/22 18:42 36.9 C 73 20 114/52 L 100 06/14/22 15:40 65 06/14/22 15:13 36.9 C 64 20 100/52 L 98 06/14/22 11:21 36.8 C 67 20 110/53 L 99 O2 Del Method 06/14/22 18:42 Room Air 06/14/22 15:40 06/14/22 15:13 Room Air 06/14/22 11:21 Room Air Laboratory Results CBC, BMP, TSH, magnesium level reviewed PG Care Time/CCT Total # of Minutes Spent Total Time Spent with Patient: Total time spent is greater than 50% in coordination of care (as documented) at patient's floor/unit and/or counseling patient: Coding Level of Care Code 79629 SUB INP/OBS CARE 2/35MIN Diagnoses Generalized weakness R53.1 MARILIA (acute kidney injury) N17.9 Hypomagnesemia E83.42 UTI (urinary tract infection) N39.0 Hypertension I10 Diabetes mellitus, type 2 E11.9 Hypothyroidism E03.9
[2022-06-14] MEDS: ATORVASTATIN 20 MG TAB PO SCH (21:13)
[2022-06-15] MEDS: LEVOTHYROXINE SODIUM 100 MCG TABLET PO SCH (06:01)
[2022-06-15 07:45] LABS: Basophils # (auto) 0.06 K/uL (0-0.2); Eosinophils # (auto) 0.33 K/uL (0-0.50); Eosinophils % (auto) 5.7 %; Hematocrit (blood only) 32.4 % (37.0-47.0); Hemoglobin 10.9 g/dl (12.0-16.0); Immature Granulocytes # (auto) 0.08 K/uL (0.01-0.20); Immature Granulocytes % (auto) 1.4 %; Lymphocytes # (auto) 1.87 K/uL (1.2-3.4); Mean Corpuscular Hgb Conc 33.6 g/dL (32.0-36.0); Mean Corpuscular Volume 89.3 fL (80.0-100.0); Mean Platelet Volume 10.1 fL (9.4-12.4); Monocytes # (auto) 0.51 K/uL (0.11-0.59); Monocytes % (auto) 8.7 %; Neutrophils # (auto) 2.99 K/uL (1.40-6.50); Neutrophils % (auto) 51.2 %; Platelet Count 161 K/uL (130-400); RDW Coefficient of Variation 13.3 % (11.5-14.5); RDW Standard Deviation 43.5 fL (36.4-46.3); Red Blood Count 3.63 M/uL (4.20-5.40); White Blood Count 5.84 K/ul (4.8-10.8)
[2022-06-15 08:00] LABS: BUN Creatinine Ratio 14.6 (10-20); Calcium 8.7 mg/dl (8.5-10.1); Creatinine Clr Calc Pharmacy 29.8 ml/min; Est GFR (African American) 42.1 ml/min; Est GFR (Non-African American) 36.3 ml/min; Magnesium 1.8 mg/dl (1.7-2.4); Potassium 4.5 mmol/L (3.5-5.1)
[2022-06-15 08:19] LABS: Ferritin 125.6 ng/ml (8-388)
[2022-06-15 08:26] LABS: Vitamin B12 349 pg/ml (180-914)
[2022-06-15] MEDS: INSULIN ASPART PER UNIT SC SCH ×3 (08:40→17:21)
[2022-06-15] MEDS: HEPARIN SOD 5,000 UNIT/0.5 ML VIAL SQ SCH (08:41)
[2022-06-15] MEDS: METOPROLOL SUCC 50MG EXT REL TAB PO SCH (08:42)
[2022-06-15] MEDS: cefTRIAXone SODIUM 1,000 MG in DEXTROSE 5% AD-VAN 50 ML IV SCH (16:48)
--- NOTE | 2022-06-15 17:12 | Discharge Summary ---
Date of Service June 15, 2022 Admission HPI Per Admitting Provider Brandee Winslow is an 87-year-old female who presents to the ER with generalized weakness and a fall on Sunday. She was recently diagnosed with a urine tract infection treated with Bactrim. Per PCP note seen she was having urinary frequency for 10 days prior to being on antibiotics. The patient tells me today it was a few days. Bactrim was started on 06/09/22 for a 7 day course. Since starting the Bactrim she has notice her urinary symptoms improving. She reports dizziness/lightheadedness on standing up. No room spinning sensation. Associated decreased appetite. No diarrhea, bright red blood in stool, melena, odynophagia or dysphagia. She does her problem is usually constipation and she required a laxative 2 days ago. Weakness is generalized and not unilateral. No change in speech, vision or hearing. Principal Diagnosis Generalized weakness, fall, dehydration, hyperglycemia, acute kidney injury, hypomagnesemia Discharge Exam Constitutional WD/WN, vitals as above Eyes + eyelid abnormality (Right periorbital ecchymosis) Respiratory normal respiratory effort, lungs clear to auscultation Cardiovascular RRR, no murmur, no edema Gastrointestinal (Abdomen) normal bowel sounds, soft, nontender, no hepatosplenomegaly Neurologic no focal motor deficits and not confused Psychiatric A+Ox3, euthymic affect Discharge Data Allergies Allergy/AdvReac Type Severity Reaction Status Date / Time No Known Allergies Allergy Verified 06/13/22 13:54 Consultations 06/13/22 13:59 ED Decision to Admit Stat 06/13/22 19:39 HIM [Consult Health Information Management] Routine Ordered Studies 06/13/22 11:04 CT abd pelvis wo con Stat 06/13/22 11:05 CT cervical spine wo con Stat CT facial bones wo con Stat CT head/brain wo con Stat Hospital Course (1) Generalized weakness: Likely secondary to MARILIA and hypomagnesemia in setting of hypotension and anti- hypertensives. Low suspicion of worsening urinary infection since her urinary symptoms have been improving and urinalysis here is without evidence of infection. Held diphenhydramine HS PRN and cautioned to use sparingly at home as it puts her at risk for falls PT/OT evaluations placed-recommend to return home Much improved now with IV fluids, improving renal function, and magnesium replacement. Also decreased or discontinued some of her blood pressure medicines due to low blood pressures (2) MARILIA (acute kidney injury): Suspect multifactorial with Bactrim use, concomitant losartan and HCTZ use, hyperglycemia causing dehydration, and hypotension CT abdomen/pelvis without evidence of obstruction She is making urine, without acidosis or hyperkalemia. Blood pressures are controlled to low normal Received a total of 3.5 L isotonic fluid-now tolerating p.o. without difficulty Creatinine 2.5 on arrival and now down to 1.3 Tolerating p.o. Permanently discontinue HCTZ and can take furosemide 20 mg daily only as needed for ankle swelling Decrease losartan dose on discharge to 50 mg once daily (3) Hypomagnesemia: Magnesium level 1.3. Magnesium sulfate 3 g IV total was given and magnesium level normalized Could be secondary to HCTZ use-recommend discontinuation of this She does not take any PPI No history of chronic diarrhea or poor p.o. intake (4) UTI (urinary tract infection): Repeat UA without evidence of infection and no urinary symptoms currently Took Bactrim prior to arrival-held for acute kidney injury Continue ceftriaxone 1g IV daily x2 doses here-no further antibiotics needed on discharge UTI symptoms are resolved (5) Hypertension: Blood pressure is low normal on arrival -Held losartan, amlodipine and hydrochlorothiazide on admission Acute kidney injury improved and blood pressures remained normal at the time of discharge Discontinue amlodipine and hydrochlorothiazide permanently Decrease losartan to 50 mg once daily Continue metoprolol succinate at home dose of 50 Mg p.o. twice daily Follow blood pressures as an outpatient (6) Diabetes mellitus, type 2: Glucose 449 mg/dL in the emergency room. Insulin 5 units IV was given initially. Now blood sugars better controlled in the mid 100s She was previously on Actos and then converted to metformin many years ago. Her hemoglobin A1c was in the normal range and she was taken off her metformin. She has not checked her sugars in 2 years HbA1c now up to 9.9%-uncontrolled and causing dehydration Was treated with Lantus and NovoLog here, but we can go home on metformin XR 500 Mg p.o. twice daily Consider Januvia or Tradjenta as an outpatient if her insurance will cover-defer to PCP Would avoid p.o. hypoglycemic medication such as glipizide Appreciate breastfeeding educator-Will prescribe glucometer and testing supplies at discharge (7) Hypothyroidism: TSH here is normal at 0.871 Continue levothyroxine 100 mcg p.o. daily (8) Anemia: Hemoglobin here mildly low at 10.9, normocytic Transferrin saturation normal at 29%, ferritin normal at 125 B12 and folate normal TSH normal Follow-up with PCP Plan VTE prophylaxis -heparin 5000 units twice daily Disposition -much improved, stable for discharge to home Total Time Total Time Spent Total Time Spent (In Minutes): 40 minutes Discharge Plan Discharge Items Patient Disposition: Home - Self-Care Reason For Visit: MARILIA, HYPOMAGENSIUM Discharge Diagnosis: Acute kidney injury, hypomagnesemia, generalized weakness with fall, diabetes mellitus with hyperglycemia Condition on Discharge: Good Activity: Resume your previous activity Non-emergency contact: Primary Care Provider Call non-emergency contact if: you have any medication questions and your symptoms worsen Follow-up/Referrals: Rosalinda Dumont MD [Primary Care Provider] - 07/04/22 10:30 am Diet: Carb Consistent or DM2 and Heart Healthy Addtl Attending Provider Instructions: You were admitted with kidney failure secondary to dehydration both from your high blood sugars as well as from Bactrim use. This improved with hydration and improvement of your blood sugar. The Bactrim was also discontinued. You should start testing your blood sugars as we discussed and start on metformin for your diabetes. Follow-up with your primary care physician for further management of this. You no longer need any further antibiotics for your previous urinary tract infection as this has resolved. You should stop taking your HCTZ as it can cause low magnesium. You will be given a prescription for furosemide to take only as needed if your ankles become swollen. Your amlodipine was stopped as your blood pressures were controlled without it. Your losartan will be cut in half to 50 mg once daily. Pending Studies at Discharge: Yes Studies:: Blood cultures-no growth to date Stand-Alone Forms: [employer], Smoking Cessation Medications and DC Order Prescriptions: New metformin 500 mg tablet extended release 24 hr 500 mg PO BID Qty: 60 0RF furosemide [Lasix] 20 mg tablet 20 mg PO DAILY PRN (Reason: ankle swelling) Qty: 30 0RF (DME) blood-glucose meter [OneTouch Ultra2 Meter] Misc See Rx Instructions .Route Qty: 1 0RF Rx Instructions: As directed (DME) OneTouch Ultra Test Strip See Rx Instructions .Route Qty: 25 5RF Rx Instructions: As directed once daily for glucose testing (DME) lancets [OneTouch Delica Lancets] 33 gauge misc See Rx Instructions .Route Qty: 100 0RF Rx Instructions: As directed once daily for glucose testing Continued levothyroxine 100 mcg tablet 100 mcg PO DAILY atorvastatin 20 mg tablet 20 mg PO HS Qty: 90 diphenhydramine HCl 25 mg tablet 25 mg PO HS PRN (Reason: Sleep) metoprolol succinate 50 mg tablet extended release 24 hr 50 mg PO BID Qty: 180 multivitamin tablet 1 tab PO QPM cholecalciferol (vitamin D3) 2,000 unit tablet 2,000 units PO QAM Changed losartan 100 mg tablet 50 mg PO QAM Qty: 90 0RF Discontinued amlodipine 10 mg tablet 10 mg PO QPM Qty: 90 sulfamethoxazole-trimethoprim 800-160 mg tablet 1 tab PO BID hydrochlorothiazide 12.5 mg capsule 12.5 mg PO DAILY ibuprofen [Advil] 100 mg Tablet,Chewable 400 mg PO Q6H PRN (Reason: Pain) Discharge Orders: Discharge Order (Routine); Ordered 06/15/22 Ordered By: Katy Lucas Admission Data Admit Date/Time: 06/13/22 14:14 Attending Provider: Katy Lucas Admit Provider: Tyler Barrios Primary Care Provider: Rosalinda Dumont Other Providers: Tyler Barrios Coding Level of Care Code 11204 INP/OBS DISCH >30 MIN Diagnoses Generalized weakness R53.1 MARILIA (acute kidney injury) N17.9 Hypomagnesemia E83.42 UTI (urinary tract infection) N39.0 Hypertension I10 Diabetes mellitus, type 2 E11.9 Hypothyroidism E03.9 Anemia D64.9
== END 2022-06-15 17:41 | disposition home or self-care (01) | DRG 684 ==
LOC: ED 10:27 → SUATTDRO 14:14 → 2N 14:14